=== PATIENT | female | born 1985 | race African-American/Black ===

== ENCOUNTER 2024-03-19 13:12 | Outpatient (CLI) | payer OTHER, SELFPAY ==
--- NOTE | ~2024-03-19 | MMUS_ITS ---
EXAMINATION: MM diagnostic josh BI w [facility], US breast RT limited HISTORY: Palpable right breast lump TECHNIQUE: Additional 3-D tomosynthesis images of the breasts were performed and synthetic 2-D images were generated. CAD analysis was submitted and interpreted. High resolution Limited right breast ult rasound was performed. COMPARISON: No prior studies for comparison. Breast parenchymal density: Dense: The breasts are heterogeneously dense, which may obscure small mas ses FINDINGS: MAMMOGRAPHIC FINDINGS: There is no mammographic evidence for malignancy in the left breast. There is a mass in the upper out er quadrant of the right breast, middle third. This mass contains a fatty hilum, likely an enlarged i ntramammary lymph node. ULTRASOUND: Limited right breast ultrasound: At 10:30, 5 cm from the nipple there is an enlarged intramammary lym ph node measuring 1.4 x 1 x 0.5 cm, likely reactive. IMPRESSION: 1. Probable benign intramammary lymph node of the right breast at 10:30, 5 cm from the nipple. 2. Recommend 6 month follow-up Limited right breast ultrasound BI-RADS category 3, probably benign findings. Reviewed, dictated and finalized at location B. IMPRESSION: 1. Probable benign intramammary lymph node of the right breast at 10:30, 5 cm f rom the nipple. 2. Recommend 6 month follow-up Limited right breast ultrasound BI-RADS category 3, probably benign findings.
== END 2024-03-19 13:13 | disposition home or self-care (01) ==
LOC: ANHIMG 13:14
PROVIDERS: Visit Provider Nurse Practitioner
DX: R92.8 Other abnormal and inconclusive findings on diagnostic imaging of breast (principal)
CPT/HCPCS: 76642; 77062; 77066; G0279

== ENCOUNTER 2024-09-19 13:39 | Outpatient (CLI) | payer OTHER, SELFPAY ==
--- NOTE | ~2024-09-19 | US_ITS ---
EXAMINATION TYPE: US breast RT limited COMPARISON: 03/19/2024 REASON FOR STUDY: RIGHT US TECHNIQUE: Targeted sonographic evaluation of the right breast was performed. INTERPRETATION: At the 10:00-11:00 position right breast, 5 cm from the nipple, there is a 1.3 x 1.3 x 0.5 cm peripor erik lymph node with prominent fatty hilum. This is unchanged from prior exam. IMPRESSION: Stable benign lymph node of the right breast, as above. BI-RADS CATEGORY: BI-RADS 2: Benign Reviewed, dictated and finalized at location M. HEAD SAW OPERATOR
--- OUTSIDE RECORDS SUMMARY | 2024-09-19 15:28 | XMS_ITS | Data Portability ---
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 Plan of Treatment Reminders Order Date Submit Date Provider Last Modified By Organization Details Last Modified Time Details Appointments None recorded. Lab lipid panel, serum 2022 023 RENEA MARVIN, [facility], [address] [address], [place], [address], 3 06:15:48 CBC w/ auto diff 2022 023 [facility], [address] [address], [place], [address], 3 06:15:50 CMP, serum or plasma 2022 023 [facility]EN[facility], [address] [address], [place], [address], 3 06:15:49 urinalysi s, dipstick 2022 023 [facility]anta [facility]MAN [facility], [facility] [address], [place], [address], 3 06:15:50 Hepatitis C IgG Ab, qual, serum 2022 023 [facility], [address], [place], [address], 3 06:16:11 pap, IG + HPV, cervical - please use Z11.51 in addition to code above for HPV testing. 2018 019 [facility], [address], [address], [place], [address], 9 10:16:44 urinalysi s, dipstick 2018 [email or web address] In-Office Order, Internal Use Only DO Not Attach Compendium DO Not Attach Compendium, Do Not Delete/merge, [id number] 9 15:06:38 test, urine 2018 019 stella In-Office Order, Internal Use Only DO Not Attach Compendium DO Not Attach Compendium, Do Not Delete/merge, [id number] 9 15:06:38 bacterial vaginosis panel, vaginal 2018 019 [facility] (Centralized Electronic Ordering - All Locations), Patient Can Go To The Location Of Their Choice, [id number] 9 10:53:43 culture, vaginal/r ectal, streptoco ccus group B 2018 019 [facility] ([facility] - All [facility]ations), Patient Can Go To The Location Of Their Choice, [id number] 9 10:53:43 Referral None recorded. Procedures None recorded. Surgeries None recorded. Imaging None recorded. Medication Orders Ventolin HFA 90 mcg/actua tion aerosol inhaler 2022 023 [id number], [address], [place], [id number], 3 11:32:48 Singulair 10 mg tablet 2022 023 [facility] #61258, [address], [place], [id number], 3 10:48:30 multivita min tablet 2018 019 [facility] #[id number], [address], [place], [id number], 3 10:31:13 Calcium with Vitamin D 600 mg-10 mcg (400 unit) tablet 2018 019 [facility] #24950, [address], [place], [id number], 3 10:30:35 Xulane 150 mcg-35 mcg/24 hr transderm al patch 2018 019 [facility] #[id number], [address], [place], [id number], 3 10:31:56 Ventolin HFA 90 mcg/actua tion aerosol inhaler 2014 015 [facility] #[id number], [address], [place], [id number], 5 14:41:46 Singulair 10 mg tablet 2014 015 [facility] #[id number], [place], [id number], 3 10:31:48 Patient TargetsNo targets recorded. 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 [facility] Not available 01/29/2015 14:41:46 05/01/2019 [id number] Well Visit, Ages 18 to 65: Care Instructions [email or web address] Not available 05/01/2019 14:04:24 02/28/2023 [id number] ER report (Pending) Labs Continue Albuterol Restart Montelukast, side effects including mood disorders and allergies were discussed. Follow up in 4 weeks Addendum Pap smear results, please reagan Not available 02/28/2023 11:32:47 Reason for Referral None Reported. Results Created Date Observation Date Name Description Value Unit Range Abnormal Flag Note LastModifiedBy Organization Detail LastModifiedTime 05/01/20 19 05/01/2019 pregn andrea test, urine HCG negati ve Not Available In-Office Order Internal Use Only DO Not Attach Compendium DO Not Attach Compendium, Do Not Delete/merge, [id number] 05/01/2019 11:09:11 05/01/20 19 05/01/2019 urina lysis , dipst ick Leukocytes Negati ve Not Available In-Office Order Internal Use Only DO Not Attach Compendium DO Not Attach Compendium, Do Not Delete/merge, [id number] 05/01/2019 11:09:10 05/01/20 19 05/01/2019 urina lysis , dipst ick Nitrite negati ve Not Available In-Office Order Internal Use Only DO Not Attach Compendium DO Not Attach Compendium, Do Not Delete/merge, [id number] 05/01/2019 11:09:10 05/01/20 19 05/01/2019 urina lysis , dipst ick Urobilinogen .2 Not Available In-Of fice Order Internal Use Only DO Not Attach Compendium DO Not Attach Compendium, Do Not Delete/merge, [id number] 05/01/2019 11:09:10 05/01/20 19 05/01/2019 urina lysis , dipst ick Protein Negati ve Not Available In-Office Order Internal Use Only DO Not Attach Compendium DO Not Attach Compendium, Do Not Delete/merge, [id number] 05/01/2019 11:09:10 05/01/20 19 05/01/2019 urina lysis , dipst ick pH 7.0 Not Available In-Office Order Internal Use Only DO Not Attach Compendium DO Not Attach Compendium, Do Not Delete/merge, [id number] 05/01/2019 11:09:10 05/01/20 19 05/01/2019 urina lysis , dipst ick Blood Modera te Not Available In-Office Order Internal Use Only DO Not Attach Compendium DO Not Attach Compendium, Do Not Delete/merge, [id number] 05/01/2019 11:09:10 05/01/20 19 05/01/2019 urina lysis , dipst ick Specific [place] 1.015 Not Available In-Off ice Order Internal Use Only DO Not Attach Compendium DO Not Attach Compendium, Do Not Delete/merge, [id number] 05/01/2019 11:09:10 05/01/20 19 05/01/2019 urina lysis , dipst ick Ketone Negati ve Not Available In-Office Order Internal Use Only DO Not Attach Compendium DO Not Attach Compendium, Do Not Delete/merge, [id number] 05/01/2019 11:09:10 05/01/20 19 05/01/2019 urina lysis , dipst ick Bilirubin Negati ve Not Available In-Office Order Internal Use Only DO Not Attach Compendium DO Not Attach Compendium, Do Not Delete/merge, [id number] 05/01/2019 11:09:10 05/01/20 19 05/01/2019 urina lysis , dipst ick Glucose Negati ve Not Available In-Office Order Internal Use Only DO Not Attach Compendium DO Not Attach Compendium, Do Not Delete/merge, [id number] 05/01/2019 11:09:10 05/01/20 19 05/03/2019 pap, IG + HPV, cervi jane diagnosis: Commen t NEGAT DEVON FOR INTRA EPITH ELIAL LESIO N OR DAVE MCCAULEY . Not Available [facility] ([facility]) [address], [place], [address], 05/03/2019 10:37:28 05/01/2005/03/2019 pap, IG + HPV, cervi jane specimen adequacy: Commen t Satis facto ry for evalu ation . Endoc ervic al and/o r squam ous metap lasti c cells (endo cervi jane compo nent) are prese nt. Not Available [facility] ([facility]) [address] [place], [address], 05/03/2019 10:37:28 05/01/2005/03/2019 pap, IG + HPV, cervi jane clinician provided ICD10: Deirdre casper Z01.4 19 Z11.5 1 Not Available [facility] ([facility]) [address] [place], [address], 05/03/2019 10:37:28 05/01/2005/03/2019 pap, IG + HPV, cervi jane performed by: Deirdre bella, Cytot filemon casper (ASCP ) Not Available [facility] ([facility]) [address] [place], [address], 05/03/2019 10:37:28 05/01/2005/03/2019 pap, IG + HPV, cervi jane . . Not Available [facility] ([facility]) [address] [place], [address], 05/03/2019 10:37:28 05/01/2005/03/2019 pap, IG + HPV, cervi jane note: Deirdre casper The Pap smear is a scree cinda test desig jl to aid in the detec tion of deo ligna nt and malig nant condi tions of the uteri ne cervi x. It is not a diagn ostic proce dure and shoul d not be used as the sole means of detec ting cervi jane cance r. Both false -posi tive and false -nega tive repor ts do occur . Not Available [facility] ([facility]) [address] [place], [address], 05/03/2019 10:37:28 05/01/2005/03/2019 pap, IG + HPV, cervi jane test methodology: Deirdre casper This liqui d based ThinP rep(R ) pap test was scree jl with the use of an image guide martina damon. Not Available [facility] ([facility]) [address] [facility], [place], [address], 05/03/2019 10:37:28 05/01/2005/03/2019 pap, IG + HPV, cervi jane HPV aptima Negati ve negati ve This test detec ts fourt een high- risk HPV types (16/1 8/31/ 33/35 /39/4 5/ 51/52 /56/5 8/59/ 66/68 ) witho ut diffe renti ation . Not Available [facility] ([facility]) [address] [facility], [place], [address], 05/03/2019 10:37:28 05/01/2005/03/2019 bacte rial vagin osis panel , vagin al atopobium vaginae Modera te - 1 score Not Available [facility] ([facility]) [address] [place], [address], 05/04/2019 06:09:36 05/01/2005/03/2019 bacte rial vagin osis panel , vagin al bvab 2 High - 2 score abnormal Not Available [facility] ([facility]) [address] [place], [address], 05/04/2019 06:09:36 05/01/2005/03/2019 bacte rial vagin osis panel , vagin al megasphaera 1 High - 2 score abnormal Calcu late total score by addin g the 3 indiv idual bacte rial vagin osis (BV) marke r score s toget her. Total score is inter prete d as follo ws: Total score 0-1: Indic ates the absen ce of BV. Total score 2: Indet ermin ate for BV. Addit ional clini jane data shoul d be evalu ated to estab denis a diagn osis. Total score 3-6: Indic ates the prese nce of BV. This test was devel oped and its perfo rmanc e suyapa cteri stics deter mined by [facility]. It has not been clear ed or appro graciela by the Food and Drug Admin istra tion. The FDA has deter mined that such clear ance or appro romero is not neces genna. Not Available [facility] ([facility]) [address] [place], [address], 05/04/2019 06:09:36 05/01/2005/03/2019 bacte rial vagin osis panel , vagin al syl albicans, PER Negati ve negati ve Not Available [facility] ([facility]) [address] [place], [address], 05/04/2019 06:09:36 05/01/2005/03/2019 bacte rial vagin osis panel , vagin al syl glabrata, PER Negati ve negati ve This test was devel oped and its perfo rmanc e suyapa cteri stics deter mined by [employer] [facility]. It has not been clear ed or appro graciela by the Food and Drug Admin istra tion. The FDA has deter mined that such clear ance or appro romero is not neces genna. Not Available [facility] ([facility]) [address] [place], [address], 05/04/2019 06:09:36 05/01/2005/03/2019 bacte rial vagin osis panel , vagin al trich vag by PER Negati ve negati ve Not Available [facility] ([facility]) [address] [place], [address], 05/04/2019 06:09:36 05/01/2005/03/2019 bacte rial vagin osis panel , vagin al chlamydia trachomatis, PER Negati ve negati ve Not Available [facility] ([facility]) [address] [place], [address], 05/04/2019 06:09:36 05/01/20 19 05/03/2019 bacte rial vagin osis panel , vagin al neisseria gonorrhoeae, PER Negati ve negati ve Not Available [facility] ([facility]) [address] [place], [address], 05/04/2019 06:09:36 05/01/20 19 05/03/2019 bacte rial vagin osis panel , vagin al hsv 1 PER Negati ve negati ve Not Available [facility] ([facility]) [address] [place], [address], 05/04/2019 06:09:36 05/01/2005/03/2019 bacte rial vagin osis panel , vagin al hsv 2 PER Negati ve negati ve Not Available [facility] ([facility]) [address] [place], [address], 05/04/2019 06:09:36 05/01/2005/03/2019 cultu re, vagin al/re ctal, strep tococ cus group B strep gp B PER Positi ve negati ve abnormal Cente rs for Disea se Contr ol and Preve ntion (CDC) and Ameri can Congr ess of Obste trici ans and Gynec ologi sts (ACOG ) guide lines for preve ntion of perin atal group B strep tococ jane (GBS) disea se speci fy co-co llect ion of a vagin al and recta l swab speci men to maxim ize sensi tivit y of GBS detec tion. Per the CDC and ACOG, swabb ing both the lower vagin a and rectu m subst antia lly incre ases the yield of detec tion damon red with sampl ing the vagin a alone . Penic illin G, ampic illin , or cefaz tl are indic ated for intra partu m proph ylaxi s of perin atal GBS colon izati on. Refle x susce ptibi lity testi ng shoul d be perfo rmed prior to use of clind amyci n only on GBS isola marcio from penic illin -marcus rgic women who are consi dered a high risk for anaph ylaxi s. Treat ment with vanco mycin witho ut addit ional testi ng is danny ntchristian if resis tance to clind amyalexandrea n is noted . Not Available [facility] ([facility]) [address] [place], [address], 05/04/2019 06:09:36 02/29/20 23 03/01/2023 LIPID PANEL cholesterol, total 126 mg/dL 100-19 9 Not Available [facility] ([facility]) [address] [place], [address], 03/01/2023 06:15:48 02/29/20 23 03/01/2023 LIPID PANEL triglyceride s 75 mg/dL 0-149 Not Available [facility] ([facility]) [address] [place], [address], 03/01/2023 06:15:48 02/29/20 23 03/01/2023 LIPID PANEL HDL cholesterol 52 mg/dL >39 Not Available [facility] ([facility]) [address] [place], [address], 03/01/2023 06:15:48 02/29/20 23 03/01/2023 LIPID PANEL VLDL cholesterol jane 15 mg/dL 5-40 Not Available [facility] ([facility]) [address] [place], [address], 03/01/2023 06:15:48 02/29/20 23 03/01/2023 LIPID PANEL LDL chol calc ([facility]) 59 mg/dL 0-99 Not Available [facility] ([facility]) [address] [place], [address], 03/01/2023 06:15:48 02/29/20 23 03/01/2023 COMP. METAB OLIC PANEL (14) glucose 82 mg/dL 70-99 Not Available [facility] ([facility]) [address] [place], [address], 03/01/2023 06:15:48 02/29/20 23 03/01/2023 COMP. METAB OLIC PANEL (14) BUN 7 mg/dL 6-20 Not Available [facility] ([facility]) [address] [place], [address], 03/01/2023 06:15:48 02/29/20 23 03/01/2023 COMP. METAB OLIC PANEL (14) creatinine 0.85 mg/dL 0.57-1 .00 Not Available [facility] ([facility]) [address] [place], [address], 03/01/2023 06:15:48 02/29/20 23 03/01/2023 COMP. METAB OLIC PANEL (14) eGFR 92 mL/mi n/1.7 3 >59 Not Available [facility] ([facility]) [address] [place], [address], 03/01/2023 06:15:48 02/29/20 23 03/01/2023 COMP. METAB OLIC PANEL (14) BUN/creatini ne ratio 8 9-23 below low normal Not Available [facility] ([facility]) [address] [place], [address], 03/01/2023 06:15:48 02/29/20 23 03/01/2023 COMP. METAB OLIC PANEL (14) sodium 139 mmol/ L 134-14 4 Not Available [facility] ([facility]) [address] [facility] [place], [address], 03/01/2023 06:15:48 02/29/20 23 03/01/2023 COMP. METAB OLIC PANEL (14) potassium 3.8 mmol/ L 3.5-5. 2 Not Available [facility] ([facility]) [address] [facility] [place], [address], 03/01/2023 06:15:48 08/07/20 23 03/01/2023 COMP. METAB OLIC PANEL (14) chloride 102 mmol/ L 96-106 Not Available [facility] ([facility]) [address] [facility] [place], [address], 03/01/2023 06:15:48 02/29/20 23 03/01/2023 COMP. METAB OLIC PANEL (14) carbon dioxide, total 24 mmol/ L 20-29 Not Available [facility] ([facility]) [address] [facility], [place], [address], 03/01/2023 06:15:48 02/29/20 23 03/01/2023 COMP. METAB OLIC PANEL (14) calcium 9.7 mg/dL 8.7-10 .2 Not Available [facility] ([facility]) [address] [facility], [place], [address], 03/01/2023 06:15:48 02/29/20 23 03/01/2023 COMP. METAB OLIC PANEL (14) protein, total 8.2 g/dL 6.0-8. 5 Not Available [facility] ([facility]) [address] [facility] [place], [address], 03/01/2023 06:15:48 02/29/20 23 03/01/2023 COMP. METAB OLIC PANEL (14) albumin 4.8 g/dL 3.9-4. 9 Not Available [facility] ([facility]) [address] [facility], [place], [address], 03/01/2023 06:15:48 02/29/20 23 03/01/2023 COMP. METAB OLIC PANEL (14) globulin, total 3.4 g/dL 1.5-4. 5 Not Available [facility] ([facility]) [address] [facility], [place], [address], 03/01/2023 06:15:48 02/29/20 23 03/01/2023 COMP. METAB OLIC PANEL (14) A/G ratio 1.4 1.2-2. 2 Not Available [facility] ([facility]) [address] [facility] [place], [address], 03/01/2023 06:15:48 02/29/20 23 03/01/2023 COMP. METAB OLIC PANEL (14) bilirubin, total 0.8 mg/dL 0.0-1. 2 Not Available [facility] ([facility]) [address] [facility] [place], [address], 03/01/2023 06:15:48 02/29/20 23 03/01/2023 COMP. METAB OLIC PANEL (14) alkaline phosphatase 71 IU/L 44-121 Not Available [facility] ([facility]) [address] [place], [address], 03/01/2023 06:15:48 02/29/20 23 03/01/2023 COMP. METAB OLIC PANEL (14) AST (SGOT) 21 IU/L 0-40 Not Available [facility] ([facility]) [address] [facility] [place], [address], 03/01/2023 06:15:48 02/29/20 23 03/01/2023 COMP. METAB OLIC PANEL (14) ALT (SGPT) 9 IU/L 0-32 Not Available [facility] ([facility]) [address] [facility] [place], [address], 03/01/2023 06:15:48 02/29/20 23 02/28/2023 URINA LYSIS , ROUTI NE specific gravity 1.014 1.005- 1.030 Not Available [facility] ([facility]) [address] [facility] [place], [address], 03/01/2023 06:15:50 02/29/20 23 02/28/2023 URINA LYSIS , ROUTI NE pH 6.5 5.0-7. 5 Not Available [facility] ([facility]) [address] [facility], [place], [address], 03/01/2023 06:15:50 02/29/20 23 02/28/2023 URINA LYSIS , ROUTI NE urine-color Yellow yellow Not Available [facility] ([facility]) [address] [facility], [place], [address], 03/01/2023 06:15:50 02/29/20 23 02/28/2023 URINA LYSIS , ROUTI NE appearance Clear clear Not Available [facility] ([facility]) [address] [place], [address], 03/01/2023 06:15:50 02/29/20 23 02/28/2023 URINA LYSIS , ROUTI NE WBC esterase 2+ negati ve abnormal Not Available [facility] ([facility]) [address] [facility], [place], [address], 03/01/2023 06:15:50 02/29/20 23 02/28/2023 URINA LYSIS , ROUTI NE protein Negati ve negati ve/tra ce Not Available [facility] ([facility]) [address] [facility], [place], [address], 03/01/2023 06:15:50 02/29/20 23 02/28/2023 URINA LYSIS , ROUTI NE glucose Negati ve negati ve Not Available [facility] ([facility]) [address] [place], [address], 03/01/2023 06:15:50 02/29/20 23 02/28/2023 URINA LYSIS , ROUTI NE ketones Negati ve negati ve Not Available [facility] ([facility]) [address] [place], [address], 03/01/2023 06:15:50 02/29/20 23 02/28/2023 URINA LYSIS , ROUTI NE occult blood Negati ve negati ve Not Available [facility] ([facility]) [address] [facility], [place], [address], 03/01/2023 06:15:50 02/29/2002/28/2023 URINA LYSIS , ROUTI NE bilirubin Negati ve negati ve Not Available [facility] ([facility]) [address] [place], [address], 03/01/2023 06:15:50 02/29/2002/28/2023 URINA LYSIS , ROUTI NE urobilinogen ,semi-qn 1.0 mg/dL 0.2-1. 0 Not Available [facility] ([facility]) [address] [place], [address], 03/01/2023 06:15:50 02/29/20 23 02/28/2023 URINA LYSIS , ROUTI NE nitrite, urine Positi ve negati ve abnormal Not Available [facility] ([facility]) [address] [facility], [place], [address], 03/01/2023 06:15:50 02/29/2002/28/2023 URINA LYSIS , ROUTI NE microscopic examination See below: Micro scopi c was indic ated and was perfo rmed. Not Available [facility] ([facility]) [address] [place], [address], 03/01/2023 06:15:50 02/29/2002/28/2023 CBC WITH DIFFE RENTI AL/PL ATELE T WBC 4.2 x10e3 /uL 3.4-10 .8 Not Available [facility] ([facility]) [address] [place], [address], 03/01/2023 06:15:50 02/29/20 23 02/28/2023 CBC WITH DIFFE RENTI AL/PL ATELE T RBC 4.22 x10e6 /uL 3.77-5 .28 Not Available [facility] ([facility]) [address] [facility], [place], [address], 03/01/2023 06:15:50 02/29/2002/28/2023 CBC WITH DIFFE RENTI AL/PL ATELE T hemoglobin 11.8 g/dL 11.1-1 5.9 Not Available [facility] ([facility]) [address] [place], [address], 03/01/2023 06:15:50 02/29/2002/28/2023 CBC WITH DIFFE RENTI AL/PL ATELE T hematocrit 36.3 % 34.0-4 6.6 Not Available [facility] ([facility]) [address] [place], [address], 03/01/2023 06:15:50 02/29/20 23 02/28/2023 CBC WITH DIFFE RENTI AL/PL ATELE T MCV 86 fL 79-97 Not Available [facility] ([facility]) [address] [place], [address], 03/01/2023 06:15:50 02/29/2002/28/2023 CBC WITH DIFFE RENTI AL/PL ATELE T MCH 28.0 pg 26.6-3 3.0 Not Available [facility] ([facility]) [address] [place], [address], 03/01/2023 06:15:50 02/29/2002/28/2023 CBC WITH DIFFE RENTI AL/PL ATELE T MCHC 32.5 g/dL 31.5-3 5.7 Not Available [facility] ([facility]) [address] [place], [address], 03/01/2023 06:15:50 02/29/2002/28/2023 CBC WITH DIFFE RENTI AL/PL ATELE T RDW 13.3 % 11.7-1 5.4 Not Available [facility] ([facility]) [address] [place], [address], 03/01/2023 06:15:50 02/29/20 23 02/28/2023 CBC WITH DIFFE RENTI AL/PL ATELE T platelets 247 x10e3 /uL 150-45 0 Not Available [facility] ([facility]) [address] [facility], [place], [address], 03/01/2023 06:15:50 02/29/20 23 02/28/2023 CBC WITH DIFFE RENTI AL/PL ATELE T neutrophils 40 % notest ab. Not Available [facility] ([facility]) [address] [facility], [place], [address], 03/01/2023 06:15:50 02/29/20 23 02/28/2023 CBC WITH DIFFE RENTI AL/PL ATELE T lymphs 38 % notest ab. Not Available [facility] ([facility]) [address] [facility], [place], [address], 03/01/2023 06:15:50 02/29/20 23 02/28/2023 CBC WITH DIFFE RENTI AL/PL ATELE T monocytes 8 % notest ab. Not Available [facility] ([facility]) [address] [facility], [place], [address], 03/01/2023 06:15:50 02/29/20 23 02/28/2023 CBC WITH DIFFE RENTI AL/PL ATELE T eos 13 % notest ab. Not Available [facility] ([facility]) [address] [facility], [place], [address], 03/01/2023 06:15:50 02/29/20 23 02/28/2023 CBC WITH DIFFE RENTI AL/PL ATELE T basos 1 % notest ab. Not Available [facility] ([facility]) [address] [facility], [place], [address], 03/01/2023 06:15:50 02/29/20 23 02/28/2023 CBC WITH DIFFE RENTI AL/PL ATELE T neutrophils (absolute) 1.6 x10e3 /uL 1.4-7. 0 Not Available [facility] ([facility]) [address] [facility], [place], [address], 03/01/2023 06:15:50 02/29/20 23 02/28/2023 CBC WITH DIFFE RENTI AL/PL ATELE T lymphs (absolute) 1.6 x10e3 /uL 0.7-3. 1 Not Available [facility] ([facility]) [address] [place], [address], 03/01/2023 06:15:50 02/29/20 23 02/28/2023 CBC WITH DIFFE RENTI AL/PL ATELE T monocytes(ab solute) 0.4 x10e3 /uL 0.1-0. 9 Not Available [facility] ([facility]) [address] [facility], [place], [address], 03/01/2023 06:15:50 02/29/20 23 02/28/2023 CBC WITH DIFFE RENTI AL/PL ATELE T eos (absolute) 0.6 x10e3 /uL 0.0-0. 4 above high normal Not Available [facility] ([facility]) [address] [facility], [place], [address], 03/01/2023 06:15:50 02/29/20 23 02/28/2023 CBC WITH DIFFE RENTI AL/PL ATELE T baso (absolute) 0.0 x10e3 /uL 0.0-0. 2 Not Available [facility] ([facility]) [address] [place], [address], 03/01/2023 06:15:50 02/29/20 23 02/28/2023 CBC WITH DIFFE RENTI AL/PL ATELE T immature granulocytes 0 % notest ab. Not Available [facility] ([facility]) [address] [place], [address], 03/01/2023 06:15:50 02/29/20 23 02/28/2023 CBC WITH DIFFE RENTI AL/PL ATELE T immature grans (abs) 0.0 x10e3 /uL 0.0-0. 1 Not Available [facility] ([facility]) [address] [facility], [place], [address], 03/01/2023 06:15:50 02/29/20 23 03/01/2023 HCV ANTIB MARIELENA hep C virus Ab Non Reacti ve nonrea ctive HCV antib marielena alone does not diffe renti ate betwe en previ ously resol graciela infec tion and activ e infec tion. Equiv ocal and React devon HCV antib marielena resul ts shoul d be follo wed up with an HCV RNA test to suppo rt the diagn osis of activ e HCV infec tion. Not Available [facility] ([facility]) [address] [facility], [place], [address], 03/01/2023 06:16:11 02/29/20 23 03/01/2023 MICRO SCOPI C EXAMI NATIO N WBC 6-10 /hpf 0-5 abnormal Not Available [facility] ([facility]) [address] [facility], [place], [address], 03/01/2023 06:15:49 02/29/20 23 03/01/2023 MICRO SCOPI C EXAMI NATIO N RBC 0-2 /hpf 0-2 Not Available [facility] ([facility]) [address] [facility], [place], [address], 03/01/2023 06:15:49 02/29/20 23 03/01/2023 MICRO SCOPI C EXAMI NATIO N epithelial cells (non renal) 0-10 /hpf 0-10 Not Available [facility] ([facility]) [address] [facility], [place], [address], 03/01/2023 06:15:49 02/29/20 23 03/01/2023 MICRO SCOPI C EXAMI NATIO N casts None seen /lpf nonese en Not Available [facility] ([facility]) [address] [facility], [place], [address], 03/01/2023 06:15:49 02/29/20 23 03/01/2023 MICRO SCOPI C EXAMI NATIO N bacteria Few nonese en/few Not Available [facility] ([facility]) [address], [place], [address], 03/01/2023 06:15:49 03/02/2001/23/2023 XR, chest No observ ation record ed. [facility] [address] [place], [address], 03/02/2023 11:11:30 Result Notes None recorded. Problems Name Problem SNOMED Code Status Onset Date Resolution Date Notes Provider Name and Address Organization Details Recorded Time Eczema 67722032 Active 2018 Kecia Fuentes MA null, [place] - [facility] 9 10:58:48 Sickle cell trait 07577720 Active 2018 Kecia Fuentes [place] null, [place] [facility] 9 11:05:22 Tetanus vaccination declined by patient 371993641 Active 2022 Rosemarie De La Fuente MD Attn: Geraldine cardoso,[address] [facility], [place], [address], [place] - [facility] 3 10:50:49 SARS-CoV-2 antigen vaccine declined 3924138668 Active 2022 Rosemarie De La Fuente MD Attn: Geraldine cardoso,[address] [facility], [place], [address], [place] [facility] 3 10:50:49 Asthma 759806230 Active Helga Robles MD Attn: Geraldine cardoso,[address] [facility], [place], [address], [place] [facility] 5 14:41:46 Problem Notes None recorded. Procedures Surgical History Date Name Laterality Status Provider Name and Address Organization Details Recorded Time 09/22/2022 Date of Last Pap Smear completed Rosemarie De La Fuente MD Attn: Accounting,[address] [facility], [place], [address], [place] - [facility] 02/28/2023 10:41:53 Imaging Results Imaging Date Name Status LastModified by Organiz ation Details LastModified Time 01/23/2023 XR, chest completed [facility] [address] [facility], [place], [address], 03/02/2023 11:11:30 Procedure Notes None recorded. Medical Equipment None Reported. Allergies Allergen ID Allergen Name Allergen Category Reaction Reaction Severity Criticality Documentation Date Start Date Code Code System Note Provider Name and Address Organization Details Recorded Time 32219 strawberr y allergeni c extract food facial swelling Not available Not available 01/29/2015 08211 4 RxNorm Not Available Not Available Not Available Medications Name Sig Start Date Stop Date Status Note LastModified by Organization Details LastModified Time multivitami n tablet Take 1 tablet every day by oral route. 02/28 completed Not Available Not Available Not Available amoxicillin 500 mg capsule 02/28 completed Not Available Not Available Not Available albuterol sulfate 2.5 mg/3 mL (0.083 %) solution for nebulizatio n USE 1 VIAL VIA NEBULIZER EVERY 4 HOURS NEEDED active Not Available Not Available No t Available azithromyci n 250 mg tablet 02/28 completed Not Available Not Available Not Available ibuprofen 800 mg tablet 02/28 completed Not Available Not Available Not Available metronidazo le 0.75 % (37.5 mg/5 gram) vaginal gel Insert 1 applicato rful every day by vaginal route for 5 days. 02/28 completed Not Available Not Available Not Available ondansetron HCl 4 mg tablet TAKE 1 TABLET BY MOUTH EVERY 8 HOURS NEEDED FOR NAUSEA active Not Available Not Available No t Available prednisone 20 mg tablet TAKE 3 TABLETS BY MOUTH ONCE DAILY FOR 5 DAYS 02/28 completed Not Available Not Available Not Available penicillin V potassium 500 mg tablet Take 1 tablet twice a day by oral route for 7 days. 02/28 completed Not Available Not Available Not Available sulfamethox azole 800 mg-trimetho prim 160 mg tablet TAKE 1 TABLET BY MOUTH EVERY 12 HOURS FOR 3 DAYS DIRECTED active Not Available Not Available No t Available cephalexin 500 mg capsule TAKE 1 CAPSULE BY MOUTH EVERY 12 HOURS FOR 10 DAYS active Not Available Not Available No t Available oseltamivir 75 mg capsule 02/28 completed Not Available Not Available Not Available montelukast 10 mg tablet TAKE 1 TABLET BY MOUTH EVERY DAY DIRECTED active Not Available Not Available No t Available ergocalcife rol (vitamin D2) 1,250 mcg (50,000 unit) capsule TAKE 1 CAPSULE BY MOUTH EVERY WEEK 02/28 completed Not Available Not Available Not Available ibuprofen 600 mg tablet 02/28 completed Not Available Not Available Not Available levofloxaci n 500 mg tablet 02/28 completed Not Available Not Available Not Available albuterol sulfate HFA 90 mcg/actuati on aerosol inhaler INHALE 2 PUFFS BY MOUTH EVERY 4 HOURS NEEDED active Not Available Not Available No t Available nitrofurant oin monohydrate /macrocryst als 100 mg capsule 02/28 completed Not Available Not Available Not Available Ventolin HFA 02/28 completed Not Available Not Available Not Available Oysco 500/D 500 mg-5 mcg (200 unit) tablet 02/28 completed Not Available Not Available Not Available Calcium with Vitamin D 600 mg-10 mcg (400 unit) tablet Take 1 tablet twice a day by oral route. 02/28 completed Not Available Not Available Not Available Xulane 150 mcg-35 mcg/24 hr transdermal patch Apply 1 patch every week by transderm al route. 02/28 completed Not Available Not Available Not Available Vitals Date Recorded Body weight Oxygen saturation Oxygen saturation in Arterial blood by Pulse oximetry Body height Body mass index (BMI) Body temperature Heart rate Systolic blood pressure Diastolic blood pressure Provider Name and Address Organization Details Last Updated DateTime 5 88942.2 29461 g 100 % 100 % 160.02 cm 29.5 kg/m2 98.7 [degF] 107 /min 90 mm[Hg] 50 mm[Hg] Grzegorz Bravo MA [place] - [facility] 5 14:25:00 Date Recorded Body height Body mass index (BMI) Body weight Systolic blood pressure Diastolic blood pressure Provider Name and Address Organization Details Last Updated DateTime 05/01/2019 162.56 cm 20.6 kg/m2 61044.08 g 120 mm[Hg] 76 mm[Hg] Kecia Fuentes MA [facility] 9 11:57:19 Date Recorded Body height Body mass index (BMI) Body weight Heart rate Oxygen saturation Oxygen saturation in Arterial blood by Pulse oximetry Systolic blood pressure Diastolic blood pressure Provider Name and Address Organization Details Last Updated DateTime 3 162.56 cm 25.4 kg/m2 38467.6 7 g 91 /min 97 % 97 % 110 mm[Hg] 70 mm[Hg] Annette Adam MA [facility] 3 10:34:15 Date Recorded Body height Body weight Body mass index (BMI) Oxygen saturation Oxygen saturation in Arterial blood by Pulse oximetry Heart rate Respiratory rate Body temperature Systolic blood pressure Diastolic blood pressure Provider Name and Address Organization Details Last Updated DateTime 6 162.56 cm 71383.2 g 21.6 kg/m2 99 % 99 % 86 /min 16 /min 98.1 [degF] 84 mm[Hg] 62 mm[Hg] Staci Gaston MA [facility] 6 16:28:24 Social History Question Answer Notes LastModified by Organizat ion Details LastModified Time Tobacco Smoking Status Never Smoker Kecia Fuentes MA [facility] 05/01/2019 11:05:40 Do You Have An Advance Directive? No [email or web address] Information not available 05/01/2019 What Is Your Level Of Alcohol Consumption? None [email or web address] Information not available 01/29/2015 Is Blood Transfusion Acceptable In An Emergency? Yes [email or web address] Information not available 05/01/2019 What Is Your Level Of Caffeine Consumption? Occasional Soda Mountain Dew [email or web address] Information not available 05/01/2019 How Much Tobacco Do You Chew? None [email or web address] Information not available 05/01/2019 Are You Currently Employed? Yes [email or web address] Information not available 05/01/2019 What Type Of Diet Are You Following? REGULAR [email or web address] Information not available 05/01/2019 Which Illicit Or Recreational Drugs Have You Used? Denies [email or web address] Information not available 05/01/2019 Do You Or Have You Ever Used E-cigarettes Or Vape? 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 With Others [email or web address] Information not available 05/01/2019 What Was The Date Of Your Most Recent Tobacco Screening? 02/28/2023 [email or web address] Information not available 02/28/2023 How Many Children Do You Have? 4 Information not available 05/01/2019 Performs Monthly Self-breast Exam? No [email or web address] Information not available 05/01/2019 Do You Use Protection During Sex? Always [email or web address] Information not available 05/01/2019 What Is Your Relationship Status? Single [email or web address] Information not available 05/01/2019 Seat Belts Used Routinely Yes [email or web address] Information not available 05/01/2019 Are You Sexually Active? Yes Information not available 05/01/2019 Do You Or Have You Ever Used Smokeless Tobacco? Never Used Smokeless Tobacco [email or web address] Information not available 05/01/2019 How Much Tobacco Do You Smoke? No [email or web address] Information not available 05/01/2019 General Stress Level Low Information not available 05/01/2019 Do You Use Sunscreen Routinely? No [email or web address] Information not available 05/01/2019 How Many Years Have You Smoked Tobacco? 0 Information not available 05/01/2019 Sex: Unknown Functional Status Question Answer Note LastModified by Organizat ion Details LastModified Time What is your exercise level? Occasional Information not available 05/01/2019 Mental Status None recorded. Family History Relationship Description Onset Age of this Age Resolved Age Notes LastModified by Organization Details LastModified Time Mother Diabetes mellitus [email or web address] Not available 05/01 11:04:35 Mother Hypertensive disorder [email or web address] Not available 05/01 11:04:59 Father Diabetes mellitus [email or web address] Not available 05/01 11:04:45 Father Hypertensive disorder Not available 05/01 11:04:59 Father Sickle cell trait [email or web address] Not available 05/01 11:05:09 Medical History Condition Response Other N High Blood Pressure N Breast Cancer N Thyroid Problems N Kidney or Bladder Problems N GI Problems N Depression Y Blood Clots N Lung Disease Y Acne N Breast Problem N Eating Disorder N Anemia Y Anesthesia Complications N Headaches/Migraines N Anxiety Disorder N Diabetes N Ovarian Cancer N Muscle, Joint, or Bone Problems N Blood Transfusions N Seizures/Epilepsy N Polyps N Infertility N Acid Reflux (GERD) N Cancer N Abuse/Domestic Violence N Asthma Y Endometriosis N High Cholesterol N Hepatitis N Liver Disease N Heart Disease N Pre-Eclampsia N Osteoporosis N Gynecological History Statement/Question Response Abnormal Pap N Flow Moderate Date of LMP 02/13/2023 STIs/STDs N HPV Vaccine N Duration of Flow (days) 4 Age at Menarche 17 Current Control Method None Age at First Child 18 Frequency of Cycle (Q days) 28 Sexually Active? Y Menses Monthly Y Date of Last Pap Smear 09/22/2022 Sexual Problems? N LMP Approximate Desired Control Method Patch Obstetrics History GPAL:G 5 P 1 3 1 4 Type Value Multiple Births 0 Full Term 1 Induced 0 Spontaneous 1 Premature 3 Living 4 Ectopics 0 Total 5 Past Encounters Encounter ID Performer Location Encounter Start Date Encounter Closed Date Diagnosis/Indication Diagnosis SNOMED-CT Code Diagnosis ICD10 Code Diagnosis Note [id number] Aruna Ojeda (Adult Med) [address] [place] [address] 01/29/2015 14:02:18 01/31/2015 13:55:01 Third trimester less than 36 weeks 499909403 Asthma 904010592 [id number] Tomas Altamirano MD [address] [address] 06/16/2016 16:13:26 06/22/2016 09:36:35 History and physical examination, pre-employment 146465217 Z02.1 [id number] 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 Pt interested in starting patch. [id number] Rosemarie De La Fuente MD [facility] (Adult Med) [address] [place] [address] 02/28/2023 10:24:15 02/28/2023 14:23:17 General examination of patient 856391155 Z00.01 Asthma 900190621 J45.90 9 SARS-CoV-2 antigen vaccine declined 6447976893 Z28.21 Tetanus va ccination declined by patient 001012477 Z28.21 Health Concerns Section Related Observation LastModified by Organization Detai ls LastModified Time None Recorded Concern Status LastModified by Organization Details LastModified Time None Recorded Advance Directives Directive N: Payers Encounter Date Sequence Insurance Name Policy Number Policy Henson Covered Member ID Henson Member ID Guarantor Name 01/29/2015 1 [facility] PRIOR TO 01/22/2021 (MEDICAID REPLACEMENT - HMO) Fiona Clinton [id number] Fiona Clinton 06/16/2016 1 [place] [id number] [facility] [employer] Fiona Clinton [id number] Fiona Clinton 02/28/2023 1 [facility] ON OR AFTER 01/22/21 (MEDICAID REPLACEMENT - HMO) Fiona Clinton [id number] Fiona Clinton Notes Date Note Type Note Provider Name and Address Organization Details Recorded Time 06/16/2016 text/html Physical to keep foster children. She has history of Asthma and Eczema. Tomas Altamirano MD Attn: Accounting,[address] [place], [address], [facility] 06/16/2016 22:39:17 05/01/2019 text/html Annual GYNReport ed bypatient.Menstrual cycle:Normal menses Urinary symptoms:No hematuria; No incontinence Vulva:No genital lesion Vagina:Foul-smellin g Breast:No breast pain; No breast lump; No nipple discharge Current Contraception: control not practiced; Wants to discuss contraceptive options Sexual complaints:No sexual complaints; No pain during intercourse; Normal libido Menopausal Symptoms:No menopausal symptoms; Normal vaginal lubrication Psychological symptoms:No depression; No anxiety; No PMDD Preventive measures:Encourage self breast examination; Encourage regular exercise; Encourage no tobacco use; Encourage regular mammograms starting age [age]yo F presents for annual WWE/routine Pap. No specific concerns today. YOUSIF OROZCO Attn: Accounting,[address] [facility], [place], [address], [facility] 05/01/2019 15:01:58 02/28/2023 text/html Asthma [place] ed bypatient.Severity: not able to sleep during episode; used nebulizer times for this episode; uses nebulizer/inhaler an average of times/week lately Context:worsening Associated Symptoms:no fever; no fatigue; no irritability; no cough; normal appetite; no changes in productivity; no shortness of breath Prior History:prior hospitalization/ER visits for asthma I had went o the hospital and they see that I had no asthma doctor and they gave me you guys number 37 y/o BF who was last seen here by a different provider on 01/29/2015, she apparently has had multiple visits to the ER with flares of her asthma mainly due to not having all her medications and she was advised to establish care with a provider. PCP NoneGYN Dr Strauss, Pap 09/2022 Rosemarie De La Fuente MD Attn: Accounting,[address] [facility], [place], [address], [facility] 02/28/2023 11:32:57 OBGyn Episode Ob Episode Information Episode Created Date Number of Fetuses Patient Bloodtype Patient rh Status Prepregnancy Weight lbs Domestic Partner Domestic Partner Phone Father Name Electro Optical Engineer Status 05/01/20 19 1 CLOSED Fetus Data First Name Last Name Admitted to NICU Weight (g) Sex Living Outcome Pediatric Complications Fetus ID Race Codes Race Delivery Type 2664.85 3 [place] [address] Vaginal Mina Calculation Initial Mina Date Initial Exam Date Initial Exam Provider Initial Ultrasound Date Last Menstrual Period Date Ultra Sound Weeks Gestation 0 Eighteen To Twenty Week Mina Update Ultra Sound Date Fundal Height At Umbil Quickening Date Ultra Sound Latest Weeks Gestation Final Mina Confirmed By Final Mina Confirmed Date Final Mina Date Ultra Sound Latest Days Gestation 0 0 Menstrual History Last Menstrual Date Menses Monthly On Bcp Conception Prior Menses Frequency Hcg Plus Date Menarche Onset Age Delivery Information Delivery Date Delivery Type Labor Anesthesia Weeks Gestation Incision Type Labor Labor Length Hrs Delivered By Post Complications Tubal Sterilization Discharge Date Comments 3 [facility]- idural 38 true Discharge Information Feeding Method Contraceptive Method Maternal HG B and HCT Levels Ob Episode Information Episode Created Date Number of Fetuses Patient Bloodtype Patient rh Status Prepregnancy Weight lbs Domestic Partner Domestic Partner Phone Father Name Electro Optical Engineer Status 05/01/20 19 1 CLOSED Fetus Data First Name Last Name Admitted to NICU Weight (g) Sex Living Outcome Pediatric Complications Fetus ID Race Codes Race Delivery Type , Spontane ous [id number] Mian Calculation Initial Mina Date Initial Exam Date Initial Exam Provider Initial Ultrasound Date Last Menstrual Period Date Ultra Sound Weeks Gestation 0 Eighteen To Twenty Week Mina Update Ultra Sound Date Fundal Height At Umbil Quickening Date Ultra Sound Latest Weeks Gestation Final Mina Confirmed By Final Mina Confirmed Date Final Mina Date Ultra Sound Latest Days Gestation 0 0 Menstrual History Last Menstrual Date Menses Monthly On Bcp Conception Prior Menses Frequency Hcg Plus Date Menarche Onset Age Delivery Information Delivery Date Delivery Type Labor Anesthesia Weeks Gestation Incision Type Labor Labor Length Hrs Delivered By Post Complications Tubal Sterilization Discharge Date Comments 9 6 Discharge Information Feeding Method Contraceptive Method Maternal HG B and HCT Levels Ob Episode Information Episode Created Date Number of Fetuses Patient Bloodtype Patient rh Status Prepregnancy Weight lbs Domestic Partner Domestic Partner Phone Father Name Electro Optical Engineer Status 05/01/20 19 1 CLOSED Fetus Data First Name Last Name Admitted to NICU Weight (g) Sex Living Outcome Pediatric Complications Fetus ID Race Codes Race Delivery Type 2919.77 1704 [place] [address] Vaginal Mina Calculation Initial Mina Date Initial Exam Date Initial Exam Provider Initial Ultrasound Date Last Menstrual Period Date Ultra Sound Weeks Gestation 0 Eighteen To Twenty Week Mina Update Ultra Sound Date Fundal Height At Umbil Quickening Date Ultra Sound Latest Weeks Gestation Final Mina Confirmed By Final Mina Confirmed Date Final Mina Date Ultra Sound Latest Days Gestation 0 0 Menstrual History Last Menstrual Date Menses Monthly On Bcp Conception Prior Menses Frequency Hcg Plus Date Menarche Onset Age Delivery Information Delivery Date Delivery Type Labor Anesthesia Weeks Gestation Incision Type Labor Labor Length Hrs Delivered By Post Complications Tubal Sterilization Discharge Date Comments 5 [facility]- idural 38 true Discharge Information Feeding Method Contraceptive Method Maternal HG B and HCT Levels Ob Episode Information Episode Created Date Number of Fetuses Patient Bloodtype Patient rh Status Prepregnancy Weight lbs Domestic Partner Domestic Partner Phone Father Name Electro Optical Engineer Status 05/01/20 19 1 CLOSED Fetus Data First Name Last Name Admitted to NICU Weight (g) Sex Living Outcome Pediatric Complications Fetus ID Race Codes Race Delivery Type 6690.48 2 F Prematur [place] [address]26 Vaginal Mina Calculation Initial Mina Date Initial Exam Date Initial Exam Provider Initial Ultrasound Date Last Menstrual Period Date Ultra Sound Weeks Gestation 0 Eighteen To Twenty Week Mina Update Ultra Sound Date Fundal Height At Umbil Quickening Date Ultra Sound Latest Weeks Gestation Final Mina Confirmed By Final Mina Confirmed Date Final Mina Date Ultra Sound Latest Days Gestation 0 0 Menstrual History Last Menstrual Date Menses Monthly On Bcp Conception Prior Menses Frequency Hcg Plus Date Menarche Onset Age Delivery Information Delivery Date Delivery Type Labor Anesthesia Weeks Gestation Incision Type Labor Labor Length Hrs Delivered By Post Complications Tubal Sterilization Discharge Date Comments 7 Regional-Ep idural 34 Discharge Information Feeding Method Contraceptive Method Maternal HG B and HCT Levels Ob Episode Information Episode Created Date Number of Fetuses Patient Bloodtype Patient rh Status Prepregnancy Weight lbs Domestic Partner Domestic Partner Phone Father Name Electro Optical Engineer Status 05/01/20 19 1 CLOSED Fetus Data First Name Last Name Admitted to NICU Weight (g) Sex Living Outcome Pediatric Complications Fetus ID Race Codes Race Delivery Type 6123.49 2 M Full Term [id number] Vaginal Mina Calculation Initial Mina Date Initial Exam Date Initial Exam Provider Initial Ultrasound Date Last Menstrual Period Date Ultra Sound Weeks Gestation 0 Eighteen To Twenty Week Mina Update Ultra Sound Date Fundal Height At Umbil Quickening Date Ultra Sound Latest Weeks Gestation Final Mina Confirmed By Final Mina Confirmed Date Final Mina Date Ultra Sound Latest Days Gestation 0 0 Menstrual History Last Menstrual Date Menses Monthly On Bcp Conception Prior Menses Frequency Hcg Plus Date Menarche Onset Age Delivery Information Delivery Date Delivery Type Labor Anesthesia Weeks Gestation Incision Type Labor Labor Length Hrs Delivered By Post Complications Tubal Sterilization Discharge Date Comments 7 Regional-Ep idural 38 false Discharge Information Feeding Method Contraceptive Method Maternal HG B and HCT Levels
--- OUTSIDE RECORDS SUMMARY | 2024-09-19 15:28 | XMS_ITS | Data Portability ---
Author Organization [facility] [place] Address [address] [place] [address] Assessment Encounter Date Assessment Date Assessment LastModified by Organization Details LastModified Time 02/02/2022 02/02/[address] trich done WWE due in September [email or web address] Not available 02/08/2022 10:38:53 02/29/2024 02/29/2024 Annual gynecological exam performed. Patient will come back in a year unless there are new symptoms. [email or web address] Not available 02/29/2024 15:17:53 Plan of Treatment Reminders Order Date Submit Date Provider Last Modified By Organization Details Last Modified Time Details Appointments None recorded. Lab hbcab (hepatitis B core Ab) igm, serum 2023 [facility] (Lab), [address] [place], [address], 13:32:51 HBsAg (hepatitis B surface Ag), serum 2023 [facility] (Lab), [address] [place], [address], 13:32:49 hepatitis C virus Ab, serum 2023 [facility] (Lab), [address] [place], [address], 13:32:49 HIV 1+2 AB + HIV 1 p24 Ag, qualitative immunoassay , serum [address] [facility] (Lab), [address], [place], [address], 4 13:32:50 RPR (rapid plasma reagin), serum [address] [facility] (Lab), [address], [place], [address], 4 13:32:50 hsv (1+2) igm, serum [address] [facility] (Lab), [address], [place], [address], 3 18:34:01 hsv-1 igg Ab, serum [address] [facility] (Lab), [address], [place], [address], 3 18:33:59 hsv-2 igg Ab, serum [address] [facility] (Lab), [address], [place], [address], 3 18:34:00 hbcab (hepatitis B core Ab) igm, serum [address] [facility] (Lab), [address], [place], [address], 3 18:34:00 HBsAg (hepatitis B surface Ag), serum [address] [facility] (Lab), [address], [place], [address], 3 18:33:58 hepatitis C virus Ab, serum [address] [facility] (Lab), [address], [place], [address], 3 18:33:58 unlisted lab - HIV 1/2 antigen/ant ibody, reflex confirmatio n [address] [facility] (Lab), [address], [place], [address], 3 18:33:57 RPR (rapid plasma reagin), serum [address] [facility] (Lab), [address], [place], [address], 3 18:34:00 CBC w/ auto diff [address] [facility] (Lab), [address], [place], [address], 3 18:33:56 CMP, serum or plasma [address] [facility] (Lab), [address], [place], [address], 3 18:33:57 lipid panel, blood [address] [facility] (Lab), [address], [place], [address], 3 18:33:56 TSH, serum or plasma [address] [facility] (Lab), [address], [place], [address], 3 18:33:59 vitamin D, 25-hydroxy, total, serum [address] [facility] (Lab), [address], [place], [address], 3 18:33:59 hsv (1+2) igm, serum [address] [facility] (Lab), [address], [place], [address], 2 12:13:13 hsv-1 igg Ab, serum 2021 [facility] (Lab), [address], [place], [address], 2 12:13:11 hsv-2 igg Ab, serum 2021 [facility] (Lab), [address], [place], [address], 2 12:13:11 hbcab (hepatitis B core Ab) igm, serum 2021 [facility] (Lab), [address], [place], [address], 2 12:13:12 HBsAg (hepatitis B surface Ag), serum 2021 [facility] (Lab), [address], [place], [address], 2 12:13:10 hepatitis C virus Ab, serum 2021 [facility] (Lab), [address], [place], [address], 2 12:13:10 unlisted lab - HIV 1/2 antigen/ant ibody, reflex confirmatio n 2021 [facility] (Lab), [address], [place], [address], 2 12:13:12 RPR (rapid plasma reagin), serum 2021 [facility] (Lab), [address], [place], [address], 2 12:13:13 Referral None recorded. Procedures None recorded. Surgeries None recorded. Imaging MAMMO, diagnostic, digital, bilateral 2023 024 [facility], [address], [place], [address], 4 08:48:13 US, breast, unilateral - right breast lump, around 12 oclock 2023 024 [facility], [address], [place], [address], 5 05:01:19 Medication Orders metronidazo le 500 mg tablet 2023 024 [facility] #[id number], [address], [place], [id number], 4 17:17:47 metronidazo le 0.75 % (37.5 mg/5 gram) vaginal gel 2021 022 [email or web address] 1 [id number] [address] [place], [place], [id number], 3 11:41:38 Patient TargetsNo targets recorded. Patient InstructionsNo instructions recorded. Reason for Referral None Reported. Results Created Date Observation Date Name Description Value Unit Range Abnormal Flag Note LastModifiedBy Organization Detail LastModifiedTime 09/25/19 22 09/24/2021 HEPAT ITIS B SURFA CE ANTIG EN hepatitis B surface antigen Non-re active non-re active This assay was perfo rmed using [employer] ratio n reage nts and test kits. Value s obtai jl with other assay metho ds or kits canno t be used inter benton eably . Not Available [facility] (Lab) [address], [place], [address], 09/29/2021 12:13:10 09/25/19 22 09/24/2021 HEPAT ITIS C ANTIB MARIELENA SCREE N, REFLE X TO CONFI RMATI ON hepatitis C antibody Non-re active non-re active This assay was perfo rmed using [employer] reage nts and test kits. Value s obtai jl with other assay metho ds or kits canno t be used inter benton eably . Not Available [facility] (Lab) [address], [place], [address], 09/29/2021 12:13:10 09/25/19 22 09/24/2021 HERPE S SMPLE X VIRUS TYPE 1 SPECI FIC AB, IGG herpes simplex virus 1 IgG Positi ve negati ve abnormal Not Available [facility] (Lab) [address] [place], [address], 09/29/2021 12:13:11 09/25/19 22 09/24/2021 HERPE S SMPLE X VIRUS TYPE 1 SPECI FIC AB, IGG herpes simplex virus 1 IgG, quant >8.0 ai 0.0-0. 8 high Not Available [facility] (Lab) [address] [place], [address], 09/29/2021 12:13:11 09/25/19 22 09/24/2021 HERPE S SIMPL EX VIRUS TYPE 2 SPECI FIC AB, IGG herpes simplex virus 2 IgG Positi ve negati ve abnormal Not Available [facility] (Lab) [address] [place], [address], 09/29/2021 12:13:11 09/25/19 22 09/24/2021 HERPE S SIMPL EX VIRUS TYPE 2 SPECI FIC AB, IGG herpes simples virus 2 IgG, quant >8.0 ai 0.0-0. 8 high Not Available [facility] (Lab) [address] [place], [address], 09/29/2021 12:13:11 09/25/19 22 09/24/2021 HIV 1/2 ANTIG EN/AN TIBOD Y, REFLE X CONFI RMATI ON HIV Ag-Ab total quant 0.14 idx <1.00 Not Available [facility] (Lab) [address] [place], [address], 09/29/2021 12:13:12 09/25/19 22 09/24/2021 HIV 1/2 ANTIG EN/AN TIBOD Y, REFLE X CONFI RMATI ON HIV Ag-Ab total Non-re active non-re active Not Available [facility] (Lab) [address], [place], [address], 09/29/2021 12:13:12 09/25/19 22 09/24/2021 HIV 1/2 ANTIG EN/AN TIBOD Y, REFLE X CONFI RMATI ON HIV-1 antibody quant 0.04 idx <1.00 Not Available [facility] (Lab) [address], [place], [address], 09/29/2021 12:13:12 09/25/19 22 09/24/2021 HIV 1/2 ANTIG EN/AN TIBOD Y, REFLE X CONFI RMATI ON HIV-1 antibody Non-re active non-re active Not Available [facility] (Lab) [address], [place], [address], 09/29/2021 12:13:12 09/25/19 22 09/24/2021 HIV 1/2 ANTIG EN/AN TIBOD Y, REFLE X CONFI RMATI ON HIV-1 antigen (P24) quant 0.14 idx <1.00 Not Available [facility] (Lab) [address], [place], [address], 09/29/2021 12:13:12 09/25/19 22 09/24/2021 HIV 1/2 ANTIG EN/AN TIBOD Y, REFLE X CONFI RMATI ON HIV-1 antigen (P24) Non-re active non-re active Not Available [facility] (Lab) [address], [place], [address], 09/29/2021 12:13:12 09/25/19 22 09/24/2021 HIV 1/2 ANTIG EN/AN TIBOD Y, REFLE X CONFI RMATI ON HIV-2 antibody quant 0.04 idx <1.00 Not Available [facility] (Lab) [address], [place], [address], 09/29/2021 12:13:12 09/25/19 22 09/24/2021 HIV 1/2 ANTIG EN/AN TIBOD Y, REFLE X CONFI RMATI ON HIV-2 antibody Non-re active non-re active HIV testi ng is perfo rmed using [employer] oassa y techn ology . The final overa ll HIV Ag-Ab resul t is deter mined based on the final resul t for each indiv idual moo te. If any of the moo marcio has 2 or more repli cates that are REACT DEVON, the final overa ll HIV Ag-Ab resul t is also React devon. A Non-R eacti ve test resul t at any point in the inves tigat ion of indiv idual subje cts does not precl ude the possi bilit y of expos ure to or infec tion with HIV-1 and/o r HIV-2 . Non-R eacti ve resul ts can occur if the quant ity of jille bianka abarca nt in the sampl e is below the detec tion limit s of the assay . React devon speci mens must be inves tigat ed by addit ional , more speci fic suppl ement al tests . Speci men confi rmati on will be perfo rmed by the [employer] us HIV 1/2 Suppl ement al Assay . The perfo rmanc e of this assay has not been estab lishe d for neona marcio and the assay shoul d not be used in indiv idual s young er than 2 years of age. Not Available [facility] (Lab) [address], [place], [address], 09/29/2021 12:13:12 09/25/19 22 09/24/2021 HEPAT ITIS B CORE, IGM hepatitis B core IgM antibody Negati ve negati ve Not Available [facility] (Lab) [address], [place], [address], 09/29/2021 12:13:12 09/25/19 22 09/24/2021 RPR SCREE N/REF TANIA TITER /FTA RPR screen Nonrea ctive nonrea ctive Not Available [facility] (Lab) [address], [place], [address], 09/29/2021 12:13:13 09/25/19 22 09/24/2021 HERPE S SIMPL EX VIRUS , 1 AND 2 IGM, IFA hsv 1 IgM screen NEGATI VE negati ve Not Available [facility] (Lab) [address], [place], [address], 09/29/2021 12:13:13 09/25/19 22 09/24/2021 HERPE S SIMPL EX VIRUS , 1 AND 2 IGM, IFA hsv 2 IgM screen NEGATI VE negati ve The IFA proce dure for measu ring IgM antib odies to HSV 1 and HSV 2 detec ts both type- commo n and type- speci fic HSV antib odies . Thus, IgM react ivity to both HSV 1 and HSV 2 may repre sent cross -reac tive HSV antib odies rathe r than expos ure to both HSV 1 and HSV 2. This assay was devel oped and its perfo rmanc e suyapa cteri stics have been deter mined by [employer]. Perfo rmanc e suyapa cteri stics refer to the moo tical perfo rmanc e of the test. Perfo rming Organ izati on Infor eliane n: Site ID: [id number] Name: [employer]-Allison martina Hung Addre ss: [id number] [place] [address] Direc tor: Memo pierce M.D. Not Available [facility] (Lab) [address], [place], [address], 09/29/2021 12:13:13 09/25/19 22 09/24/2021 IMAGE GUIDE D PAP AND HPV REGAR DLESS image guided Pap, HPV regardless of Pap result SEE RESULT S BELOW CASE REPOR T: Cytol ogy Gynec ologi flaquito Repor t Case: [id number] Autho terence cardoso Provi vinnie: Gabrielle Kulkarni CNM Colle cted: 09/24 1447 Order ing Locat ion: [place] Patho log[facility] Recei graciela: 09/25 0801 First Scree n: Andra Morgan , CT Speci men: Scree cinda Pap - Image d, Cervi x STATE MENT OF ADEQU ACY: Satis facto ry for evalu ation Trans forma tion zone compo nent prese nt Parti ally obscu ring blood prese nt. FINAL DIAGN OSIS: Negat devon for Intra epith elial Lesio n or Beverly marquez (NIL) . Shift in eren sugge stive of bacte rial vagin osis is prese nt. Elect keyshawn foster rito d by Andra Morgan , CT on 022 at 5:40 PM ----- ----- ----- ----- ----- ----- ----- ----- ----- ----- ----- ----- ----- ----- ----- ----- ----- ---- HPV RESUL TS: HPV mRNA E6/E7 : No HPV mRNA Detec anwtan NOTE: This high risk HPV mRNA assay detec ts fourt een high- risk HPV types (16, 18, 31, 33, 35, 39, 45, 51, 52, 56, 58, 59, 66, 68) witho ut diffe renti ation . COMME NT: Note: Slide scree jl manua lly due to rejec tion by the Thinp rep Imagi ng Syste m. CLINI FLAQUITO INFOR MATIO N: Menst rual Statu s: LMP (if appli cable ): Clini flaquito Histo ry/Pr eviou s Pap: Type of Neopl shayna (if appli cable ): Signi fican t Clini flaquito Findi ngs: Other Histo ry: Hormo melvi (if appli cable ): PAP EDUCA MARLON L NOTE: The Pap Test is a scree cinda test with an inher ent false negat devon rate. Liqui d-bas ed sampl ing may decre ase, but will not elimi jayson, false negat devon resul ts. A negat devon resul t does not precl ude the prese nce and/o r devel opmen t of disea se, since the prese nce of abnor mal cells in the sampl e depen ds on the locat ion of the lesio n and sampl ing techn ique. Helen nued regul ar scree cinda is the best metho d of cance r preve ntion . If repor antwan cytol ogic findi ng do not corre late with physi flaquito and/o r histo rical findi ngs, furth er inves tigat ion is recom rhonda d, as clini dinesh warra nted. Not Available [facility] (Lab) [address], [place], [address], 09/30/2021 18:42:43 09/25/19 22 09/24/2021 TRICH OMONA S VAGIN SHAYAN (RRNA ) trichomonas vaginalis ribosomal RNA (rrna) Negati ve negati ve Not Available [facility] (Lab) [address], [place], [address], 09/30/2021 18:42:43 09/25/19 22 09/24/2021 CT/GC (TESHA) , THINP REP VIAL chlamydia trachomatis, PCR Negati ve negati ve Not Available [facility] (Lab) [address] [place], [address], 09/30/2021 18:42:44 09/25/19 22 09/24/2021 CT/GC (TESHA) , THINP REP VIAL neisseria gonorrhoeae, PCR Negati ve negati ve Not Available [facility] (Lab) [address] [place], [address], 09/30/2021 18:42:44 02/03/20 22 02/02/2022 CT/GC AND TRICH OMONA S VAGIN SHAYAN (RRNA ), SWAB chlamydia trachomatis, PCR Negati ve negati ve Not Available [facility] [address] [place] [address], [phone], 02/03/2022 14:15:59 02/03/20 22 02/02/2022 CT/GC AND TRICH OMONA S VAGIN SHAYAN (RRNA ), SWAB neisseria gonorrhoeae, PCR Negati ve negati ve Not Available [facility] [address] [place] [address], [phone], 02/03/2022 14:15:59 02/03/20 22 02/02/2022 CT/GC AND TRICH OMONA S VAGIN SHAYAN (RRNA ), SWAB trichomonas vaginalis ribosomal RNA (rrna) Negati ve negati ve Not Available [facility] [address] [place] [address], [phone], 02/03/2022 14:15:59 10/01/19 23 09/30/2022 IMAGE GUIDE D PAP AND HPV REGAR DLESS image guided Pap, HPV regardless of Pap result SEE RESULT S BELOW CASE REPOR T: Cytol ogy Gynec ologi flaquito Repor t Case: [id number] Autho terence walker Provi vinnie: Gabrielle Kulkarni, RONNIE Colle cted: 09/30 1646 Order ing Locat ion: [place] Patho [place]y Recei graciela: 10/01 0851 First Scree n: Tracey Carl ret, CT Speci men: Scree cinda Pap - Image d, Cervi x STATE MENT OF ADEQU ACY: Satis facto ry for evalu ation Trans forma tion zone compo nent prese nt FINAL DIAGN OSIS: Negat devon for Intra epith elial Lesio n or Beverly marquez (NIL) . Elect keyshawn foster rito d by Tracey Carl ret, CT on 2022 at 1:51 PM ----- ----- ----- ----- ----- ----- ----- ----- ----- ----- ----- ----- ----- ----- ----- ----- ----- ---- HPV RESUL TS: HPV mRNA E6/E7 : No HPV mRNA Detec antwan NOTE: This high risk HPV mRNA assay detec ts fourt een high- risk HPV types (16, 18, 31, 33, 35, 39, 45, 51, 52, 56, 58, 59, 66, 68) witho ut diffe renti ation . COMME NT: Note: This speci men was revie wed by a Cytot echno logis t and/o r Patho logis t (as indic ated in this repor t) after evalu ation using the Thinp rep Imagi ng Syste m. CLINI FLAQUITO INFOR MATIO N: Menst rual Statu s: LMP (if appli cable ): Clini flaquito Histo ry/Pr eviou s Pap: Type of Neopl shayna (if appli cable ): Signi fican t Clini flaquito Findi ngs: Other Histo ry: Hormo melvi (if appli cable ): PAP EDUCA MARLON L NOTE: The Pap Test is a scree cinda test with an inher ent false negat devon rate. Liqui d-bas ed sampl ing may decre ase, but will not elimi jayson, false negat devon resul ts. A negat devon resul t does not precl ude the prese nce and/o r devel opmen t of disea se, since the prese nce of abnor mal cells in the sampl e depen ds on the locat ion of the lesio n and sampl ing techn ique. Helen nued regul ar scree cinda is the best metho d of cance r preve ntion . If repor antwan cytol ogic findi ng do not corre late with physi flaquito and/o r histo rical findi ngs, furth er inves tigat ion is recom rhonda d, as clini dinesh delgado nted. Not Available [facility] (Lab) [address], [place], [address], 10/05/2022 14:54:14 10/01/19 23 09/30/2022 TRICH OMONA S VAGIN SHAYAN (RRNA ) trichomonas vaginalis ribosomal RNA (rrna) Negati ve negati ve Not Available [facility] (Lab) [address], [place], [address], 10/05/2022 14:54:14 10/01/19 23 09/30/2022 CT/GC (TESHA) , THINP REP VIAL chlamydia trachomatis, PCR Negati ve negati ve Not Available [facility] (Lab) [address], [place], [address], 10/05/2022 14:54:15 10/01/19 23 09/30/2022 CT/GC (TESHA) , THINP REP VIAL neisseria gonorrhoeae, PCR Negati ve negati ve Not Available [facility] (Lab) [address], [place], [address], 10/05/2022 14:54:15 10/01/19 23 09/30/2022 CBC W/DIF F WBC 4.1 10'3/ uL 3.6-10 .2 Not Available [facility] (Lab) [address], [place], [address], 10/06/2022 18:33:56 10/01/19 23 09/30/2022 CBC W/DIF F RBC 3.70 10'6/ uL (based on docume nted legal sex) 4.10-5 .30 low Not Available [facility] (Lab) [address], [place], [address], 10/06/2022 18:33:56 10/01/19 23 09/30/2022 CBC W/DIF F HGB 10.6 g/dL (based on docume nted legal sex) 11.9-1 5.8 low Not Available [facility] (Lab) [address], [place], [address], 10/06/2022 18:33:56 10/01/19 23 09/30/2022 CBC W/DIF F HCT 32.4 % (based on docume nted legal sex) 37.4-4 8.3 low Not Available [facility] (Lab) [address], [place], [address], 10/06/2022 18:33:56 10/01/19 23 09/30/2022 CBC W/DIF F MCV 87.6 fL 82.0-9 9.0 Not Available [facility] (Lab) [address], [place], [address], 10/06/2022 18:33:56 10/01/19 23 09/30/2022 CBC W/DIF F MCH 28.6 pg 27.0-3 3.0 Not Available [facility] (Lab) [address], [place], [address], 10/06/2022 18:33:56 10/01/19 23 09/30/2022 CBC W/DIF F MCHC 32.7 g/dL 32.0-3 6.0 Not Available [facility] (Lab) [address], [place], [address], 10/06/2022 18:33:56 10/01/19 23 09/30/2022 CBC W/DIF F RDW 13.4 % 11.0-1 5.0 Not Available [facility] (Lab) [address], [place], [address], 10/06/2022 18:33:56 10/01/19 23 09/30/2022 CBC W/DIF F plt 187 10'3/ uL 150-45 0 Not Available [facility] (Lab) [address], [place], [address], 10/06/2022 18:33:56 10/01/19 23 09/30/2022 CBC W/DIF F MPV 13.0 fL 9.8-12 .7 high Not Available [facility] (Lab) [address], [place], [address], 10/06/2022 18:33:56 10/01/19 23 09/30/2022 CBC W/DIF F NRBC's 0.0 % 0 Not Available [facility] (Lab) [address], [place], [address], 10/06/2022 18:33:56 10/01/19 23 09/30/2022 CBC W/DIF F absolute NRBCs 0.0 10'3/ uL 0 Not Available [facility] (Lab) [address], [place], [address], 10/06/2022 18:33:56 10/01/19 23 09/30/2022 CBC W/DIF F neutrophils 54.0 % 37.0-7 2.0 Not Available [facility] (Lab) [address], [place], [address], 10/06/2022 18:33:56 10/01/19 23 09/30/2022 CBC W/DIF F lymphocytes 35.8 % 16.0-4 8.0 Not Available [facility] (Lab) [address], [place], [address], 10/06/2022 18:33:56 10/01/19 23 09/30/2022 CBC W/DIF F monocytes 5.6 % 4.0-14 .0 Not Available [facility] (Lab) [address], [place], [address], 10/06/2022 18:33:56 10/01/19 23 09/30/2022 CBC W/DIF F eosinophils 3.7 % 0.0-9. 0 Not Available [facility] (Lab) [address], [place], [address], 10/06/2022 18:33:56 10/01/19 23 09/30/2022 CBC W/DIF F basophils 0.7 % 0.0-2. 0 Not Available [facility] (Lab) [address], [place], [address], 10/06/2022 18:33:56 10/01/19 23 09/30/2022 CBC W/DIF F immature granulocytes 0.2 % no define d refere nce range Not Available [facility] (Lab) [address], [place], [address], 10/06/2022 18:33:56 10/01/19 23 09/30/2022 CBC W/DIF F absolute neutrophils 2.2 10'3/ uL 1.1-6. 0 Not Available [facility] (Lab) [address], [place], [address], 10/06/2022 18:33:56 10/01/19 23 09/30/2022 CBC W/DIF F absolute lymphocytes 1.5 10'3/ uL 0.7-3. 4 Not Available [facility] (Lab) [address], [place], [address], 10/06/2022 18:33:56 10/01/19 23 09/30/2022 CBC W/DIF F absolute monocytes 0.2 10'3/ uL 0.3-1. 0 low Not Available [facility] (Lab) [address], [place], [address], 10/06/2022 18:33:56 10/01/19 23 09/30/2022 CBC W/DIF F absolute eosinophils 0.2 10'3/ uL 0.0-0. 6 Not Available [facility] (Lab) [address], [place], [address], 10/06/2022 18:33:56 10/01/19 23 09/30/2022 CBC W/DIF F absolute basophils 0.0 10'3/ uL 0.0-0. 1 Not Available [facility] (Lab) [address], [place], [address], 10/06/2022 18:33:56 10/01/19 23 09/30/2022 CBC W/DIF F absolute immature granulocytes 0.0 10'3/ uL 0.00-0 .10 2022 4:56 AM: P indic ates parti al resul ts on a panel have been relea sed. Addit ional resul ts will follo w. 2022 4:56 AM: This resul t has been final verif ied. No addit ional or benton ed resul ts are expec antwan. Not Available [facility] (Lab) [address], [place], [address], 10/06/2022 18:33:56 10/01/19 23 09/30/2022 LIPID PANEL ,AMA (LDL- CALC) total cholesterol 101 mg/dL 0-199 Not Available [facility] (Lab) [address] [place], [address], 10/06/2022 18:33:56 10/01/19 23 09/30/2022 LIPID PANEL ,AMA (LDL- CALC) triglyceride s 64 mg/dL 0.00-1 50.00 NCEP Refer ence Value s for Trigl yceri césar: Kiana l: <150 mg/dL Borde rline High: 150 - 199 mg/dL High: 200 - 499 mg/dL Very High: >/= 500 mg/dL Not Available [facility] (Lab) [address] [place], [address], 10/06/2022 18:33:56 10/01/1909/30/2022 LIPID PANEL ,AMA (LDL- CALC) HDL cholesterol 51 mg/dL >40 Not Available [facility] (Lab) [address] [place], [address], 10/06/2022 18:33:56 10/01/19 23 09/30/2022 LIPID PANEL ,AMA (LDL- CALC) LDL cholesterol 37 mg/dL 0-99 Cutof f value s recom rhonda d by the [employer] [place] st[employer]ca tion Progr am: MARYLIN ABLE: [place] stero l <200 mg/dL LDL <100 mg/dL BORDE RLINE : [place] stero l 200-2 39 mg/dL LDL 101-1 59 mg/dL HIGHE R RISK: [place] stero l >240 mg/dL LDL >160 mg/dL , HDL <40 mg/dL Not Available [facility] (Lab) [address], [place], [address], 10/06/2022 18:33:56 10/01/19 23 09/30/2022 LIPID PANEL ,AMA (LDL- CALC) non-HDL cholesterol 50 mg/dL no refere nce range A reaso nable goal for non-H DL [place] stero l is one that is 30 mg/dL highe r than the LDL [place] stero l goal. Not Available [facility] (Lab) [address], [place], [address], 10/06/2022 18:33:56 10/01/19 23 09/30/2022 LIPID PANEL ,AMA (LDL- CALC) chol/HDL ratio 2.0 . 0.0-5. 0 Not Available [facility] (Lab) [address] [place], [address], 10/06/2022 18:33:56 10/01/19 23 09/30/2022 CMP(C OMPRE HENSI VE METAB OLIC PANEL ) sodium 138 mmol/ L 133-14 6 Not Available [facility] [facility] [address] [place], [address], 10/06/2022 18:33:57 10/01/19 23 09/30/2022 CMP(C OMPRE HENSI VE METAB OLIC PANEL ) potassium 3.7 mmol/ L 3.5-5. 1 Not Available [facility] (Lab) [address] [place], [address], 10/06/2022 18:33:57 10/01/19 23 09/30/2022 CMP(C OMPRE HENSI VE METAB OLIC PANEL ) chloride 104 mmol/ L 98-107 Not Available [facility] (Lab) [address] [facility] [address], [place], [address], 10/06/2022 18:33:57 10/01/19 23 09/30/2022 CMP(C OMPRE HENSI VE METAB OLIC PANEL ) carbon dioxide 27 mmol/ L 21-31 Not Available [facility] (Lab) [address] [facility], [place], [address], 10/06/2022 18:33:57 10/01/19 23 09/30/2022 CMP(C OMPRE HENSI VE METAB OLIC PANEL ) anion gap 7 mmol/ L 4-13 Not Available [facility] (Lab) [address] [facility] [address], [place], [address], 10/06/2022 18:33:57 10/01/19 23 09/30/2022 CMP(C OMPRE HENSI VE METAB OLIC PANEL ) blood urea nitrogen 10 mg/dL 7-25 Not Available [facility] (Lab) [address], [place], [address], 10/06/2022 18:33:57 10/01/19 23 09/30/2022 CMP(C OMPRE HENSI VE METAB OLIC PANEL ) creatinine 0.83 mg/dL 0.60-1 .30 Not Available [facility] (Lab) [address] [facility] [address], [place], [address], 10/06/2022 18:33:57 10/01/19 23 09/30/2022 CMP(C OMPRE HENSI VE METAB OLIC PANEL ) egfrcr (CKD-epi 2020) >90 mL/mi n/1.7 3_m2 >=60 Not Available [facility] (Lab) [address] [facility], [place], [address], 10/06/2022 18:33:57 10/01/19 23 09/30/2022 CMP(C OMPRE HENSI VE METAB OLIC PANEL ) calcium 9.4 mg/dL 8.3-10 .5 Not Available [facility] (Lab) [address] [facility], [place], [address], 10/06/2022 18:33:57 10/01/19 23 09/30/2022 CMP(C OMPRE HENSI VE METAB OLIC PANEL ) glucose 79 mg/dL 70-100 Not Available [facility] (Lab) [address] [facility], [place], [address], 10/06/2022 18:33:57 10/01/19 23 09/30/2022 CMP(C OMPRE HENSI VE METAB OLIC PANEL ) protein, total 7.7 g/dL 6.4-8. 3 Not Available [facility] (Lab) [address] [facility], [place], [address], 10/06/2022 18:33:57 10/01/19 23 09/30/2022 CMP(C OMPRE HENSI VE METAB OLIC PANEL ) albumin 4.3 g/dL 3.5-5. 0 Not Available [facility] (Lab) [address] [facility], [place], [address], 10/06/2022 18:33:57 10/01/19 23 09/30/2022 CMP(C OMPRE HENSI VE METAB OLIC PANEL ) ALT 15 units /L 9-43 Not Available [facility] (Lab) [address] [facility] [address], [place], [address], 10/06/2022 18:33:57 10/01/19 23 09/30/2022 CMP(C OMPRE HENSI VE METAB OLIC PANEL ) alkaline phosphatase 75 units /L 34-104 Not Available [facility] (Lab) [address] [facility] [address], [place], [address], 10/06/2022 18:33:57 10/01/19 23 09/30/2022 CMP(C OMPRE HENSI VE METAB OLIC PANEL ) AST 26 units /L 13-39 Not Available [facility] (Lab) [address] [facility] [address], [place], [address], 10/06/2022 18:33:57 10/01/19 23 09/30/2022 CMP(C OMPRE HENSI VE METAB OLIC PANEL ) bilirubin, total 0.5 mg/dL 0.2-1. 2 Not Available [facility] (Lab) [address], [place], [address], 10/06/2022 18:33:57 10/01/19 23 09/30/2022 HIV 1/2 ANTIG EN/AN TIBOD Y, REFLE X CONFI RMATI ON HIV antigen/anti body Nonrea ctive nonrea ctive HIV-1 antig en and HIV-1 /HIV- 2 antib odies were not detec antwan. No labor atory evide nce of HIV infec tion. Not Available [facility] (Lab) [address], [place], [address], 10/06/2022 18:33:57 10/01/19 23 09/30/2022 HEPAT ITIS B SURFA CE ANTIG EN hepatitis B surface antigen Non-re active non-re active This assay was perfo rmed using [employer] Corpo ratio n reage nts and test kits. Value s obtai jl with other assay metho ds or kits canno t be used inter benton eably . Not Available [facility] (Lab) [address] [facility], [place], [address], 10/06/2022 18:33:58 10/01/19 23 09/30/2022 HEPAT ITIS C ANTIB MARIELENA SCREE N, REFLE X TO CONFI RMATI ON hepatitis C antibody Non-re active non-re active Antib odies to HCV Not Detec antwan, does not exclu de the possi bilit y of expos ure to HCV. Not Available [facility] (Lab) [address], [place], [address], 10/06/2022 18:33:58 10/01/19 23 09/30/2022 TSH, REFLE X FREE T4 TSH 1.95 uIU/m L 0.30-5 .33 Not Available [facility] (Lab) [address] [facility] [address], [place], [address], 10/06/2022 18:33:58 10/01/19 23 09/30/2022 VITAM IN D, 25-OH (TOTA L D2/D3 ) vitamin D, 25-hydroxy, total 10.2 NG/mL 30.0-1 00.0 low Sugge stive of Defic iency : <20 ng/mL Sugge stive of Insuf ficie ncy: 20-29 ng/mL Sugge stive of Suffi cienc y: 30-10 0 ng/mL Sugge stive of Toxic ity: >150 ng/mL Not Available [facility] (Lab) [address] [facility] [address], [place], [address], 10/06/2022 18:33:59 10/01/19 23 09/30/2022 HERPE S SMPLE X VIRUS TYPE 1 SPECI FIC AB, IGG herpes simplex virus 1 IgG Positi ve negati ve abnormal Not Available [facility] (Lab) [address] [facility], [place], [address], 10/06/2022 18:33:59 10/01/19 23 09/30/2022 HERPE S SMPLE X VIRUS TYPE 1 SPECI FIC AB, IGG herpes simplex virus 1 IgG, quant >8.0 ai 0.0-0. 8 high Not Available [facility] (Lab) [address] [place], [address], 10/06/2022 18:33:59 10/01/19 23 09/30/2022 HERPE S SIMPL EX VIRUS TYPE 2 SPECI FIC AB, IGG herpes simplex virus 2 IgG Positi ve negati ve abnormal Not Available [facility] (Lab) [address] [place], [address], 10/06/2022 18:34:00 10/01/19 23 09/30/2022 HERPE S SIMPL EX VIRUS TYPE 2 SPECI FIC AB, IGG herpes simples virus 2 IgG, quant >8.0 ai 0.0-0. 8 high Not Available [facility] (Lab) [address] [facility] [address], [place], [address], 10/06/2022 18:34:00 10/01/19 23 09/30/2022 RPR SCREE N/REF TANIA TITER /FTA RPR screen Nonrea ctive nonrea ctive Not Available [facility] (Lab) [address] [facility] [address], [place], [address], 10/06/2022 18:34:00 10/01/19 23 09/30/2022 HEPAT ITIS B CORE, IGM hepatitis B core IgM antibody Negati ve negati ve Not Available [facility] (Lab) [address], [place], [address], 10/06/2022 18:34:00 10/01/19 23 09/30/2022 HERPE S SIMPL EX VIRUS , 1 AND 2 IGM, IFA hsv 1 IgM screen NEGATI VE Not Available [facility] (Lab) [address], [place], [address], 10/06/2022 18:34:01 10/01/19 23 09/30/2022 HERPE S SIMPL EX VIRUS , 1 AND 2 IGM, IFA hsv 2 IgM screen NEGATI VE REFER ENCE RANGE : NEGAT DEVON HSV IgM is detec table in serum from >90% of patie nts with prima ry HSV infec tion. Howev er, HSV IgM canno t be relia lulu used to diagn ose acute /rece nt infec tion as it is also found in 30% of patie nts with react ivate d HSV. This test may not disti nguis h betwe en HSV-1 IgM and HSV-2 IgM due to cross -reac tivit y. To diagn ose acute genit al or mucos al HSV infec tion, direc t detec tion from a lesio n by cultu re or molec rio lovello ds is prefe rred. HSV IgM posit ivity shoul d be confi rmed by HSV-1 /2 type- speci fic IgG testi ng. This test was devel oped and its moo tical perfo rmanc e suyapa cteri stics have been deter mined by [facility]. It has not been clear ed or appro graciela by FDA. This assay has been valid ated pursu ant to the CLIA regul ation s and is used for clini flaquito purpo ses. Perfo rming Organ izati on Infor matio n: Site ID: [id number] Name: [facility]/Johnny [facility] [place] , Addre ss: [id number] [place] [id number] Direc tor: Kendy arias MD,Ph D,LUKE Not Available [facility] (Lab) [address] [facility] [address], [place], [address], 10/06/2022 18:34:01 02/29/2002/29/2024 HEPAT ITIS B SURFA CE ANTIG EN hepatitis B surface antigen Non-re active non-re active This assay was perfo rmed using [employer] ratio n reage nts and test kits. Value s obtai jl with other assay metho ds or kits canno t be used inter benton eably . Not Available [facility] (Lab) [address] [facility] [address], [place], [address], 03/01/2024 13:32:49 02/29/20 24 02/29/2024 HEPAT ITIS C ANTIB MARIELENA SCREE N, REFLE X TO CONFI RMATI ON hepatitis C antibody Non-re active non-re active Antib odies to HCV Not Detec antwan, does not exclu de the possi bilit y of expos ure to HCV. Not Available [facility] (Lab) [address] [facility] [address], [place], [address], 03/01/2024 13:32:49 02/29/2002/29/2024 HIV 1/2 ANTIG EN/AN TIBOD Y, REFLE X CONFI RMATI ON HIV antigen/anti body Nonrea ctive nonrea ctive HIV-1 antig en and HIV-1 /HIV- 2 antib odies were not detec antwan. No labor atory evide nce of HIV infec tion. Not Available [facility] (Lab) [address], [place], [address], 03/01/2024 13:32:50 02/29/20 24 02/29/2024 RPR SCREE N, REFLE X TITER /CONF IRMAT ION RPR screen Nonrea ctive nonrea ctive Not Available [facility] (Lab) [address] [facility] [address], [place], [address], 03/01/2024 13:32:50 02/29/20 24 02/29/2024 HEPAT ITIS B CORE, IGM hepatitis B core IgM antibody Non-re active non-re active IgM anti- HBc not detec antwan. Does not exclu de the possi bilit y of expos ure to or infec tion with HBV. Not Available [facility] (Lab) [address] [facility] [address], [place], [address], 03/01/2024 13:32:51 02/29/20 24 02/29/2024 IMAGE GUIDE D PAP AND HPV REGAR DLESS image guided Pap, HPV regardless of Pap result SEE RESULT S BELOW CASE REPOR T: Cytol ogy Gynec ologi flaquito Repor t Case: [id number] Autho terence cardoso Provi vinnie: Rashmi Cisneros NP Colle cted: 02/28 1658 Order ing Locat ion: [place] [facility] Recei graciela: 03/01 0107 First Scree n: Tracey Carl ret, CT Speci men: Scree cinda Pap - Image d, Cervi x STATE MENT OF ADEQU ACY: Satis facto ry for evalu ation Trans forma tion zone compo nent prese nt ----- ----- ----- ----- ----- ----- ----- ----- ----- ----- ----- ----- ----- ----- ----- ----- ----- ---- FINAL DIAGN OSIS: Negat devon for Intra epith elial Lesio n or Devinapoorva marquez (NIL) . Shift in eren sugge stive of bacte rial vagin osis. Elect keyshawn foster rito d by Tracey Carl ret, CT on 2023 at 1:34 PM ----- ----- ----- ----- ----- ----- ----- ----- ----- ----- ----- ----- ----- ----- ----- ----- ----- ---- HPV RESUL TS: HPV mRNA E6/E7 : No HPV mRNA Detec antwan NOTE: This high risk HPV mRNA assay detec ts fourt een high- risk HPV types (16, 18, 31, 33, 35, 39, 45, 51, 52, 56, 58, 59, 66, 68) witho ut diffe renti ation . COMME NT: This speci men was revie wed by a Cytot echno logis t and/o r Patho logis t (as indic ated in this repor t) after evalu ation using the Thinp rep Imagi ng Syste m. CLINI FLAQUITO INFOR MATIO N: Menst rual Statu s: LMP (if appli cable ): Clini flaquito Histo ry/Pr eviou s Pap: Type of Neopl shayna (if appli cable ): Signi fican t Clini flaquito Findi ngs: Other Histo ry: Hormo melvi (if appli cable ): PAP EDUCA MARLON L NOTE: The Pap Test is a scree cinda test with an inher ent false negat devon rate. Liqui d-bas ed sampl ing may decre ase, but will not elimi jayson, false negat devon resul ts. A negat devon resul t does not precl ude the prese nce and/o r devel opmen t of disea se, since the prese nce of abnor mal cells in the sampl e depen ds on the locat ion of the lesio n and sampl ing techn ique. Helen nued regul ar scree cinda is the best metho d of cance r preve ntion . If repor antwan cytol ogic findi ng do not corre late with physi flaquito and/o r histo rical findi ngs, furth er inves tigat ion is recom rhonda d, as clini dinesh delgado nted. Not Available [facility] (Lab) [address], [place], [address], 03/07/2024 14:39:17 03/19/20 24 03/19/2024 MAMMO , diagn ostic , digit al, bilat eral No observ ation record ed. [address], [place], [address], 03/20/2024 10:45:49 03/20/20 24 03/19/2024 MAMMO , diagn ostic , digit al, bilat eral No observ ation record ed. [facility] (Mammography) [address], [place], [address], 03/21/2024 10:38:01 09/19/19 25 09/19/2024 US, breas t, jordana teral , limit ed No observ ation record ed. [address], [place], [address], 09/19/2024 15:39:00 Result Notes None recorded. Problems Name Problem SNOMED Code Status Onset Date Resolution Date Notes Provider Name and Address Organization Details Recorded Time Uterine size for dates discrepa ncy Completed 201609/23/2021 Uterine size-deena e discrepa ncy, first trimeste r;Practi ce ID: 0001 Dorene ritchie, [facility] 2 15:02:21 Gestatio n period, 25 weeks [id number] Completed 201609/23/2021 25 weeks gestatio n of pregnanc y;Practi ce ID: 0001 Dorene ritchie, [facility] 2 15:02:53 Spotting per vagina in pregnanc y [id number] Completed 201609/23/2021 Spotting complica ting pregnanc y, second trimeste r;Practi ce ID: 0001 Dorene Roblero erma, [facility] 2 15:02:30 Normal pregnanc y in multigra nyasia [id number] 4106 Completed 201609/23/2021 Encounte r for suprvsn of normal pregnanc y, second trimeste r;Practi ce ID: 0001 Dorene Roblero erma, [facility] 2 15:02:40 Gestatio n period, 11 weeks [id number] Completed 201609/23/2021 11 weeks gestatio n of pregnanc y;Practi ce ID: 0001 Dorene Osbaldo ritchie, [facility] 2 15:02:50 Pregnanc y detectio n examinat ion Completed 201609/23/2021 Encounte r for pregnanc y test, result positive ;Practic e ID: 0001 Dorene Osbaldo ritchie, [facility] 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 2 15:02:32 Amenorrh ea [id number] Completed 201609/23/2021 Amenorrh ea, unspecif ied;Prac gloria ID: 0001 Dorene Osbaldo ritchie, [facility] 2 15:02:15 Acute vaginiti s [id number] Completed 201409/23/2021 Acute vaginiti s;Practi ce ID: 0001 Dorene ritchie, [facility] 2 15:02:24 Lochia finding Completed 201409/23/2021 Encounte r for routine postpart um follow-u p;Kasieti ce ID: 0001 Dorene ritchie, [facility] 2 15:02:37 Single live [id number] Completed 201409/23/2021 DELIVER- SINGLE LIVEBORN ;Practic e ID: 0001 Dorene ritchie, [facility] 2 15:02:17 Delivery normal [id number] Completed 201409/23/2021 NORMAL DELIVERY ;Practic e ID: 0001 Dorene ritchie, [facility] 2 15:02:43 Routine antenata l care Completed 201409/23/2021 Supervis ion of other normal pregnanc y;Practi ce ID: 0001 Dorene ritchie, [facility] 2 15:02:13 Placenta l conditio n affectin g manageme nt of mother [id number] Completed 201409/23/2021 Other placenta l conditio ns, affectin g manageme nt of mother, antepart um;Pract ice ID: 0001 Dorene ritchie, [facility] 2 15:02:12 Threaten ed prematur e labor - not delivere d [id number] Completed 201409/23/2021 THRT ISAI LABOR-AN TEPART;P ractice ID: 0001 Dorene ritchie, [facility] 2 15:02:19 anatomy study Completed 201409/23/2021 [facility] SURVEY;P ractice ID: 0001 Dorene ritchie, [facility] 2 15:02:28 Antenata l screenin g Completed 201409/23/2021 ANTENATA L SCREENIN G NEC;Prac gloria ID: 0001 Dorene ritchie, [facility] 2 15:02:23 Pregnanc y test positive [id number] Completed 201409/23/2021 Positive Pregnanc y Test;Pra ctice ID: 0001 Dorene ritchie, [facility] 2 15:02:26 Speciali zed medical examinat ion Completed 201409/23/2021 Routine gynecolo gical examinat ion;Prac gloria ID: 0001 Dorene ritchie, [facility] [address] 15:02:[address] Concept Completed 201709/23/2021 Encounte r for surveill ance of other contrace ptives;R ecorded Elsewher e: No Locat ion: [facility] S ource: EHR Electrotyper Helper johnny: N Practi ce ID: 0001 Zeus lable Time: 05:00:00 PM Dorene ritchie [facility] 2 15:02:35 Surveill ance of contrace ption Completed 201709/23/2021 Encounte r for surveill ance of contrace ptives, unspecif ied;Kel rded Elsewher e: No Locat ion: [facility] S ource: EHR Electrotyper Helper johnny: N Practi ce ID: 0001 Zeus lable Time: 05:00:00 PM Dorene ritchie [facility] 2 15:02:51 Educatio n Completed 201609/23/2021 Encounte r for other general counseli ng and advice on contrace ption;Re corded Elsewher e: No Locat ion: [facility] S ource: EHR Electrotyper Helper johnny: N Practi ce ID: 0001 Zeus lable Time: 11:30:00 AM Dorene ritchie [facility] 2 15:02:34 Elevated blood-pr essure reading without diagnosi s of hyperten kaleigh [id number] Completed 201709/23/2021 Elevated blood-pr essure reading without diagnosi s of HTN;Kel rded Elsewher e: No Locat ion: Katalina marrero [facility] S ource: EHR Electrotyper Helper johnny: N Practi ce ID: 0001 Zeus lable Time: 05:00:00 PM Dorene ritchie, [facility] 2 15:02:39 Group B streptoc occus infectio n in mother complica ting childbir th [id number] Completed 201609/23/2021 Streptoc occus B carrier state complica ting childbir th;Pract ice ID: 0001 Dorene Roblero [facility], [facility] 2 15:02:10 Gestatio n period, 39 weeks [id number] Completed 201609/23/2021 39 weeks gestatio n of pregnanc y;Practi ce ID: 0001 Dorene Roblero [facility], [facility] 2 15:02:56 Gestatio n period, 26 weeks [id number] Completed 201609/23/2021 26 weeks gestatio n of pregnanc y;Practi ce ID: 0001 Dorene Roblero [facility], [facility] 2 15:02:41 Problem Notes None recorded. Procedures Surgical History Date Name Laterality Status Provider Name and Address Organization Details Recorded Time 09/30/2022 Date of Last Pap Smear completed Mandy Car [facility] 02/29/2024 17:03:14 Imaging Results Imaging Date Name Status LastModified by Organiz ation Details LastModified Time 03/19/2024 MAMMO, diagnostic, digital, bilateral completed [facility] [address] [place] [address], [address], 03/20/2024 10:45:49 03/19/2024 MAMMO, diagnostic, digital, bilateral completed [facility] (Mammography) [address], [place], [address], 03/21/2024 10:38:01 09/19/2024 US, breast, unilateral, limited active [facility] [address], [place], [address], 09/19/2024 15:39:00 Procedure Notes None recorded. Medical Equipment None Reported. Allergies Allergen ID Allergen Name Allergen Category Reaction Reaction Severity Criticality Documentation Date Start Date Code Code System Note Provider Name and Address Organization Details Recorded Time 88643 strawberr y allergeni c extract food Not available Not available Not available 07/11/2020 26684 [address] [facility] 2 14:55:50 Medications Name Sig Start Date Stop Date Status Note LastModified by Organization Details LastModified Time amoxicill in 500 mg capsule TAKE ONE CAPSULE BY MOUTH EVERY 8 HOURS FOR 10 DAYS 09/24 completed Not Available Not Available Not Available azithromy tena 250 mg tablet 09/30 completed Not Available Not Available Not Available ibuprofen 800 mg tablet TAKE 1 TABLET BY MOUTH EVERY 6 TO 8 HOURS NEEDED 02/28 completed Not Available Not Available Not Available hydrocodo ne 5 mg-acetam inophen 325 mg tablet TAKE 1 TABLET BY MOUTH EVERY 6 HOURS NEEDED FOR PAIN 09/24 completed Not Available Not Available Not Available metronida zole 0.75 % (37.5 mg/5 gram) vaginal gel INSERT 1 APPLICAT ORFUL VAGINALL Y EVERY DAY AT BEDTIME FOR 5 NIGHTS 09/30 completed Not Available Not Available Not Available ondansetr on HCl 4 mg tablet TAKE 1 TABLET BY MOUTH EVERY 8 HOURS NEEDED FOR NAUSEA 02/28 completed Not Available Not Available Not Available prednison e 20 mg tablet TAKE 3 TABLETS BY MOUTH ONCE DAILY FOR 5 DAYS 09/30 completed Not Available Not Available Not Available metronida zole 500 mg tablet TAKE 1 TABLET BY MOUTH TWICE DAILY FOR 7 DAYS active Not Available Not Available No t Available sulfameth oxazole 800 mg-trimet hoprim 160 mg tablet TAKE 1 TABLET BY MOUTH EVERY 12 HOURS FOR 3 DAYS DIRECTED 02/28 completed Not Available Not Available Not Available Reglan 10 mg tablet take 1 tablet by oral route 4 times every day 30 minutes before meals and at bedtime 09/06 completed Prescrib christian Elsew e: No Locat ion: Katalina marrero [facility] M odify By: hannah carlton DateTime : 10/12/19 15 10:30:00 AM Not Available Not Available Not Available amoxicill in 500 mg tablet TAKE 1 TABLET BY MOUTH THREE TIMES DAILY FOR 7 DAYS UNTIL ALL TAKEN 02/28 completed Not Available Not Available Not Available tamsulosi n 0.4 mg capsule TAKE 1 CAPSULE BY MOUTH DAILY 02/28 completed Not Available Not Available Not Available benzonata te 100 mg capsule TAKE 1 CAPSULE BY MOUTH EVERY 8 HOURS NEEDED FOR COUGH AND CONGESTI ON 09/24 completed Not Available Not Available Not Available cephalexi n 500 mg capsule TAKE 1 CAPSULE BY MOUTH TWICE DAILY 02/28 completed Not Available Not Available Not Available monteluka st 10 mg tablet TAKE 1 TABLET BY MOUTH EVERY DAY DIRECTED active Not Available Not Available No t Available ergocalci ferol (vitamin D2) 1,250 mcg (50,000 unit) capsule TAKE 1 CAPSULE BY MOUTH EVERY WEEK 02/28 completed Not Available Not Available Not Available ibuprofen 600 mg tablet TAKE 1 TABLET BY MOUTH EVERY 6 HOURS NEEDED FOR PAIN CONTROL WITH FOOD 09/24 completed Not Available Not Available Not Available methylpre dnisolone 4 mg tablets in a dose pack FOLLOW PACKAGE DIRECTIO NS 02/28 completed Not Available Not Available Not Available albuterol sulfate HFA 90 mcg/actua tion aerosol inhaler INHALE 2 PUFFS BY MOUTH EVERY 4 HOURS NEEDED active Not Available Not Available No t Available Ortho Evra 150 mcg-35 mcg/24 hr transderm al patch apply 1 patch by transder mal route every week 09/23 completed Prescrib ed Elsewher e: No Locat ion: Katalina marrero [facility] M odify By: manuelik Rafael carlton DateTime : 08/25/19 18 05:00:00 PM Not Available Not Available Not Available nitrofura ntoin monohydra te/macroc rystals 100 mg capsule TAKE 1 CAPSULE BY MOUTH EVERY 12 HOURS FOR 10 DAYS 09/24 completed Not Available Not Available Not Available chlorhexi dine gluconate 0.12 % mouthwash RINSE MOUTH WITH 1 CAPFUL TWICE DAILY AFTER BREAKFAS T AND DINNER 02/28 completed Not Available Not Available Not Available Asthma 02/02 completed Not Available Not Available Not Available ProAir HFA 02/02 completed Not Available Not Available Not Available 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 2 12:33:44 Date Recorded Body height Body mass index (BMI) Body weight Systolic blood pressure Diastolic blood pressure Systolic blood pressure Diastolic blood pressure Provider Name and Address Organization Details Last Updated DateTime 2 165.1 cm 24.8 kg/m2 33975.2 6 g 146 mm[Hg] 91 mm[Hg] 130 mm[Hg] 78 mm[Hg] Sana Mata [facility] 2 14:31:02 Date Recorded Body height Body mass index (BMI) Body weight Systolic blood pressure Diastolic blood pressure Systolic blood pressure Diastolic blood pressure Provider Name and Address Organization Details Last Updated DateTime 3 165.1 cm 25.8 kg/m2 96045.8 2 g 142 mm[Hg] 90 mm[Hg] 145 mm[Hg] 87 mm[Hg] Cassia Emery [facility] 3 12:42:53 Date Recorded Body height Body mass index (BMI) Body weight Systolic blood pressure Diastolic blood pressure Provider Name and Address Organization Details Last Updated DateTime 02/29/2024 165.1 cm 25.1 kg/m2 29033.45 g 113 mm[Hg] 77 mm[Hg] Mandy Car [facility] 17:02:58 Social History Question Answer Notes LastModified by Organizat ion Details LastModified Time Tobacco Smoking Status Never Smoker Cassia Yuly ritchie, [facility] 09/30/2022 12:43:18 Do You Have An Advance Directive? No [email or web address] Information n ot available 09/30/2022 What Is Your Level Of Alcohol Consumption? None [email or web address] Information not available 09/30/2022 How Many Years Have You Consumed Alcohol? 0 Information not available 09/30/2022 Are You Blind Or Do You Have Difficulty Seeing? No [email or web address] Information n ot available 09/30/2022 What Is Your Level Of Caffeine Consumption? Occasional Information not available 09/30/2022 How Much Tobacco Do You Chew? None [email or web address] Information not available 09/30/2022 In The 14 Days Before Symptom Onset, Have You Had Close Contact With A Laboratory-confirm ed COVID-19 While That Case Was Ill? No [email or web address] Information n ot available 09/30/2022 In The 14 Days Before Symptom Onset, Have You Had Close Contact With A Person Who Is Under Investigation For COVID-19 While That Person Was Ill? No [email or web address] Information not available 09/30/2022 Have You Been To An Area Known To Be High Risk For COVID-19? No [email or web address] Information not available 09/30/2022 Are You Deaf Or Do You Have Serious Difficulty Hearing? No Information not available 09/30/2022 What Type Of Diet Are You Following? REGULAR [email or web address] Information n ot available 09/30/2022 What Is The Highest Grade Or Level Of School You Have Completed Or The Highest Degree You Have Received? [id number] [email or web address] Information not available 09/30/2022 What Is Your Occupation? [employer] [email or web address] Information not available 09/30/2022 Are There Any Guns Present In Your Home? No [email or web address] Information not available 09/30/2022 Do You Use Protection During Sex? Always [email or web address] Information not available 09/30/2022 Do You Use Your Seat Belt Or Car Seat Routinely? Yes [email or web address] Information not available 09/30/2022 Do You Have Smoke And Carbon Monoxide Detectors In Your Home? Yes [email or web address] Information not available 09/30/2022 At What Age Did You Start Smoking Tobacco? 0 [email or web address] Information not available 09/30/2022 How Much Tobacco Do You Smoke? No [email or web address] Information not available 09/30/2022 Do You Feel Stressed (tense, Restless, Nervous, Or Anxious, Or Unable To Sleep At Night)? [id number] Information not available 09/30/2022 Do You Use Any Illicit Or Recreational Drugs? No Information not available 09/30/2022 Do You Use Sunscreen Routinely? No [email or web address] Information not available 09/30/2022 How Many Years Have You Smoked Tobacco? 0 [email or web address] Information not available 09/30/2022 Have You Used IV Drugs? No [email or web address] Information not available 09/30/2022 Sex: Unknown Functional Status Question Answer Note LastModified by Organizat ion Details LastModified Time Do you have difficulty walking or climbing stairs? No [email or web address] Information not available 09/30/2022 Are you able to walk? YESWOREST [email or web address] Information not available 09/30/2022 Are you able to care for yourself? Yes [email or web address] Information not available 09/30/2022 Do you have difficulty dressing or bathing? No [email or web address] Information not available 09/30/2022 What is your exercise level? None [email or web address] Information not available 09/30/2022 Mental Status None recorded. Family History Relationship Description Onset Age of this Age Resolved Age Notes LastModified by Organization Details LastModified Time Father Asthma [email or web address] Not available 0 09/23/2021 15:12:16 Father Hypertensive disorder [email or web address] Not available 2021 12:33:31 Mother Asthma [email or web address] Not available 0 09/23/2021 15:12:20 Mother Hypertensive disorder [email or web address] Not available 2021 12:33:31 Sister Asthma Not available 0 09/23/2021 15:12:22 Medical History Condition Response Allergies (Food, seasonal, environmental ) Y Other N Breast Cancer N Drug/Latex Allergies/Reactions N Blood Transfusion N Dermatologic Disorders N Lung Disease N Defects or Inherited Disease N Breast Problem N Gestational Diabetes N Hematologic disorders N Anesthesia Complications N History of STI N Deep Vein Thrombosis N Polycystic ovary syndrome N Anxiety Disorder N Autoimmune disease N Arthritis N Infertility N Polyps N Acid Reflux (GERD) N History of abnormal pap N Cancer N Stroke N Varicosities N Neurologic/Epilepsy N Endometriosis N High Cholesterol N Headaches N Fibromyalgia N Kidney Disease N Heart Problems N Kidney or Bladder Problems N Thyroid Problems N GI Problems N Eating Disorder N Anemia N Art (IVF or FET) N Psychiatric Illness N Ovarian Cancer N Diabetes N Pulmonary (TB, Asthma) N Hepatitis/Liver Disease N No Past Medical History N Eczema N Urinary Tract Infection N Abuse/Domestic Violence N Asthma Y Trauma/Violence N Depression/ depression N Heart Disease N Pre-Eclampsia N Hypertension N Osteoporosis N Thrombophilias N Gynecological History Statement/Question Response Date of Last Mammogram Flow Moderate Date of LMP 02/01/2024 N Was last menstrual period normal N STIs/STDs N If Post Menopausal, Age at Menopause 0 Date of Last Colonoscopy Desired Control Method None Abnormal Pap N On BCP's at Conception? N Colposcopy HPV Vaccine N Duration of Flow (days) 3 Current Control Method None Age at First Child 21 Are cycles usually normal Y Frequency of Cycle (Q days) 3 Sexually Active? Y Menses Monthly Y Date of DEXA bone scan Age of first menstrual cycle 18 Date of Last Pap Smear 09/30/2022 Sexual Problems? N LMP Approximate N 02/15/2024 Obstetrics History GPAL:G 4 P 4 0 0 4 Type Value Full Term 4 Living 4 Total 4 Past Encounters Encounter ID Performer Location Encounter Start Date Encounter Closed Date Diagnosis/Indication Diagnosis SNOMED-CT Code Diagnosis ICD10 Code Diagnosis Note [id number] Gabrielle Toni [facility] [address] [address] 09/24/2021 12:18:34 09/25/2021 14:34:29 Gynecologic examination 16787953 Z01.419 Z11.51 Take Calcium with Vitamin D 1200mg daily if not receiving in daily diet. It is strongly advised to have an annual flu shot and up can obtain at most pharmacies . If you have not had a TDap shot in the last 10 years you should obtain one as well. Discussed with patient & provided with informatio n regarding Gardisil vaccine to prevent the 4 strains for HPV that cause cervical cancer if under age 26. Encourage safe sexual practices, to use condoms and limit partners if not already in a monogamous relationsh ip. Do monthly self breast exams. Have mammogram yearly or every other year depending on family history. BRCA testing is now available for patients with strong genetic history of female cancer. If interested contact the office. Engage in daily exercise of low impact aerobic exercise 45-60 minutes 4-5 times weekly. Avoid tobacco and illicit drugs as well as using moderation with alcohol intake less than 1-2 8 oz beverages daily. This lifestyle behavior pattern will lead to less health conditions and longer life span. If BMI greater than 25 weight watchers or dietary consult advised. Patient received above instructio ns, and questions have been answered. If you have any questions please call or respond to this email. Patient was made aware of the patient portal and may obtain a paper copy of today's plan if desired. Sexually t ransmitted infectious disease 0080478 A64 Desires full std screen. [id number] Aminata Quick MD [facility] [address],[place] [address] 02/02/2022 14:07:12 02/05/2022 15:11:20 Bacterial vaginosis 983966803 N76.0 Venereal d isease screening 027370813 Z11.3 [id number] Gabrielle Muñoz [facility] [address],[facility] [place] [address] 09/30/2022 11:18:44 10/01/2022 10:38:23 Gynecologic examination 55232624 Z01.419 Z11.51 Take Calcium with Vitamin D 1200mg daily if not receiving in daily diet. It is strongly advised to have an annual flu shot and up can obtain at most pharmacies . If you have not had a TDap shot in the last 10 years you should obtain one as well. Discussed with patient & provided with informatio n regarding Gardisil vaccine to prevent the 4 strains for HPV that cause cervical cancer if under age 26. Encourage safe sexual practices, to use condoms and limit partners if not already in a monogamous relationsh ip. Desires full STD screen. Do monthly self breast exams. Have mammogram yearly or every other year depending on family history. BRCA testing is now available for patients with strong genetic history of female cancer. If interested contact the office. Engage in daily exercise of low impact aerobic exercise 45-60 minutes 4-5 times weekly. Avoid tobacco and illicit drugs as well as using moderation with alcohol intake less than 1-2 8 oz beverages daily. This lifestyle behavior pattern will lead to less health conditions and longer life span. If BMI greater than 25 weight watchers or dietary consult advised. Patient received above instructio ns, and questions have been answered. If you have any questions please call or respond to this email. Patient was made aware of the patient portal and may obtain a paper copy of today's plan if desired. Sexually t ransmitted infectious disease 9763038 A64 Desires full std screen. MICHELA Ng [facility] [address],[facility] [place] [address] 02/29/2024 16:59:26 03/01/2024 06:07:05 Gynecologic examination 46202395 Z01.419 WWEBC - declinedpa p updatedgc/ ct/trich testing added to papHIV/Hep B&C/Syphil is testing ordered per pt request It is strongly advised to have an annual flu shot and up can obtain at most pharmacies . If you have not had a TDap shot in the last 10 years you should obtain one as well. Discussed with patient & provided with informatio n regarding the HPV vaccine if applicable . Encourage safe sexual practices. Do monthly self breast exams. BRCA testing is now available for patients with strong genetic history of female cancer. If interested contact the office. Engage in regular exercise. Avoid tobacco and illicit drugs. This lifestyle behavior pattern will lead to less health conditions and longer life span. If BMI greater than 25 dietary consult advised. Patient received above instructio ns, and questions have been answered. Breast lump 47338648 N63 .0 right breast lump around 12 oclockdiag nostic mammogram with right breast u/s ordered Venereal d isease screening 830688229 Z11.3 Sexually t ransmitted infectious disease 8112516 A64 Vaginitis 03276464 N76.0 suspect BVrx sent, r/b/a reviewedvu lvar care guidelines discussed Time spent in visit is a total of 30 mins with at least 50% of visit consisting of counseling and review of plan of care. Health Concerns Section Related Observation LastModified by Organization Detai ls LastModified Time None Recorded Concern Status LastModified by Organization Details LastModified Time None Recorded Advance Directives Directive N: Payers Encounter Date Sequence Insurance Name Policy Number Policy Henson Covered Member ID Henson Member ID Guarantor Name 09/24/2021 1 [facility] ON OR AFTER 01/22/21 (MEDICAID REPLACEMENT - HMO) Fiona Clinton [id number] Fiona Clinton 02/02/2022 1 [facility] ON OR AFTER 01/22/21 (MEDICAID REPLACEMENT - HMO) Fiona Clinton [id number] Fiona Clinton 09/30/2022 1 [facility] ON OR AFTER 01/22/21 (MEDICAID REPLACEMENT - HMO) Fiona Clinton [id number] Fiona Clinton 02/29/2024 1 [facility] ON OR AFTER 01/22/21 (MEDICAID REPLACEMENT - HMO) Fiona Clinton [id number] Fiona Clinton Notes Date Note Type Note Provider Name and Address Organization Details Recorded Time 09/24/2021 text/html Annual GYNReport ed bypatient.Menstrual cycle:Normal menses Urinary symptoms:No hematuria; No incontinence Vulva:No genital lesion Vagina:Normal vaginal discharge Breast:No breast pain; No breast lump; No nipple discharge Sexual complaints:No sexual complaints; No pain during intercourse; Normal libido Menopausal Symptoms:No menopausal symptoms; Normal vaginal lubrication Psychological symptoms:No depression; No anxiety; No PMDD Gabrielle Muñoz [facility] 09/27/2021 22:36:32 02/02/2022 text/html Pt is a 36yo here complaining of symptoms of a vaginal infection. Symptoms include discharge and odor for 3 days, fishy odor. would also like std testing. Denies fever, chills, abdominal pain, urinary sx. Additional concerns: sexually active:y contraception: condoms Last annual exam:09/2021 Aminata Quick MD [address], [place], [address], [facility] 02/08/2022 10:39:03 09/30/2022 text/html Annual GYNReport ed bypatient.Menstrual cycle:Normal menses Urinary symptoms:No hematuria; No incontinence Vulva:No genital lesion Vagina:Normal vaginal discharge Breast:No breast pain; No breast lump; No nipple discharge Sexual complaints:No sexual complaints; No pain during intercourse; Normal libido Menopausal Symptoms:No menopausal symptoms; Normal vaginal lubrication Psychological symptoms:No depression; No anxiety; No PMDD Gabrielle ritchie, [facility] 09/30/2022 16:02:48 02/29/2024 text/html Annual GYNReport ed bypatient.Menstrual cycle:Normal menses Urinary symptoms:No hematuria; No incontinence Vulva:No genital lesion Vagina:Foul-smellin g;White Breast:No breast pain; No breast lump; No nipple discharge Sexual complaints:No sexual complaints; No pain during intercourse; Normal libido Menopausal Symptoms:No menopausal symptoms; Normal vaginal lubrication Psychological symptoms:No depression; No anxiety; No PMDD Preventive measures:Encourage self breast examination; Encourage regular exercise; Encourage no tobacco use; Encourage regular mammograms starting age 42Notes:38yo WWEno h/o abnormal papslast pap 09/2022 : normalwould like STI testing today fishy odor, vaginal discharge x 2 weeksrecently changed soaps MICHELA Ng [address], [place], [address], [facility] 02/29/2024 17:43:36 OBGyn Episode Ob Episode Information Episode Created Date Number of Fetuses Patient Bloodtype Patient rh Status Prepregnancy Weight lbs Domestic Partner Domestic Partner Phone Father Name Compensation Intern Status 09/24/19 22 1 CLOSED Fetus Data First Name Last Name Admitted to NICU Weight (g) Sex Living Outcome Pediatric Complications Fetus ID Race Codes Race Delivery Type 2806.37 3704 F Full Term 10795 Vaginal Delivery Mina Calculation Initial Mina Date Initial Exam [...] Complications Tubal Sterilization Discharge Date Comments 7 36 true Discharge Information Feeding Method Contraceptive Method Maternal HG B and HCT Levels Ob Episode Information Episode Created Date Number of Fetuses Patient Bloodtype Patient rh Status Prepregnancy Weight lbs Domestic Partner Domestic Partner Phone Father Name Compensation Intern Status 09/24/19 22 1 CLOSED Fetus Data First Name Last Name Admitted to NICU Weight (g) Sex Living Outcome Pediatric Complications Fetus ID Race Codes Race Delivery Type 2381.35 8 M Full Term 67828 Vaginal Delivery Mina Calculation Initial Mina Date Initial Exam [...] Complications Tubal Sterilization Discharge Date Comments 3 36 true Discharge Information Feeding Method Contraceptive Method Maternal HG B and HCT Levels Ob Episode Information Episode Created Date Number of Fetuses Patient Bloodtype Patient rh Status Prepregnancy Weight lbs Domestic Partner Domestic Partner Phone Father Name Compensation Intern Status 09/24/19 22 1 CLOSED Fetus Data First Name Last Name Admitted to NICU Weight (g) Sex Living Outcome Pediatric Complications Fetus ID Race Codes Race Delivery Type 3118.44 5 M Full Term 48040 Vaginal Delivery Mina Calculation Initial Mina Date Initial Exam [...] Complications Tubal Sterilization Discharge Date Comments 7 37 true Discharge Information Feeding Method Contraceptive Method Maternal HG B and HCT Levels Ob Episode Information Episode Created Date Number of Fetuses Patient Bloodtype Patient rh Status Prepregnancy Weight lbs Domestic Partner Domestic Partner Phone Father Name Compensation Intern Status 09/24/19 22 1 CLOSED Fetus Data First Name Last Name Admitted to NICU Weight (g) Sex Living Outcome Pediatric Complications Fetus ID Race Codes Race Delivery Type 2438.05 7 F Full Term 00234 Vaginal Delivery Mina Calculation Initial Mina Date Initial Exam [...] Complications Tubal Sterilization Discharge Date Comments 5 36 true Discharge Information Feeding Method Contraceptive Method Maternal HG B and HCT Levels
== END 2024-09-19 13:40 | disposition home or self-care (01) ==
LOC: ANHIMG 13:40
PROVIDERS: PCP Nurse Practitioner; Visit Provider Nurse Practitioner
DX: R92.8 Other abnormal and inconclusive findings on diagnostic imaging of breast (principal); N63.11 Unspecified lump in the right breast, upper outer quadrant
CPT/HCPCS: 76642